=== PATIENT | male | born 1950 | race American Indian/Alaskan Native ===

== ENCOUNTER 2016-09-11 07:24 | Day surgery (SDC) | payer MEDICARE, OTHER ==
[~2016-09-11 07:24] MED LIST: Cefuroxime 10 MG/ML SYRINGE EYELF SCH; Lidocaine 1% PF 2 ML SDV INJECT SCH; Pilocarpine 4% Ophth Soln 15 ML Bot EYELF SCH; Proparacaine 0.5% Ophth Soln 15 ML Bottle EYEBOTH SCH; Tetracaine 0.5% 2 ML Bottle EYELF SCH
[2016-09-11] MEDS: Polymyxin B/Trimethoprim 10 ML Bottle EYELF SCH ×3 (07:32→09:08)
[2016-09-11] MEDS: Apraclonidine 0.5% Ophth Soln 5 ML Bot EYELF SCH ×3 (07:37→09:08)
[2016-09-11] MEDS: Phenylephrine 2.5% Ophth Soln 2 ML Bot EYELF SCH ×5 (07:41→08:49)
--- NOTE | 2016-09-11 07:46 | PCM.PREANE ---
Preanesthetic Assessment - Anesthesia/Transfusion/Family Hx Anesthesia History: Prior Anesthesia Without Reaction Family History of Anesthesia Reaction: No Transfusion History: Prior Transfusion Without Reaction Type of Transfusion Reactions: Reports: Unknown - Review of Systems General: Fatigue Pulmonary: Shortness of Breath, Wheezing (5 liters taken off with thoracentesis) Cardiovascular: No Symptoms, Other (HTN, EF 20-25%, severe pulmonary HTN, ) Gastrointestinal: No symptoms Neurological: No Symptoms, Other (hx of a stroke with no residuals) Other: Reports: Easy Bruising, Diabetes (on dialysis, last run 09/10/16) - Physical Assessment NPO Status Date: 09/10/16 NPO Status Time: 22:00 Pulse: 90 O2 Sat by Pulse Oximetry: 100 Respiratory Rate: 16 Blood Pressure: 99/72 Temperature: 36.2 C Height: 1.78 m Weight: 74.389 kg ASA Class: 3 Mental Status: Alert & Oriented x3 Airway Class: Mallampati = 2 Dentition: Reports: Edentulous (upper ) Thyro-Mental Finger Breadths: 3 Mouth Opening Finger Breadths: 3 ROM/Head Extension: Full Lungs: Clear to auscultation, Normal respiratory effort, Decreased breath sounds Cardiovascular: Regular Rate, Regular Rhythm - Allergies Allergies/Adverse Reactions: Allergies Allergy/AdvReac Type Severity Reaction Status Date / Time No Known Allergies Allergy Verified 09/10/16 14:27 - Blood Blood Available: No Product(s) Available: None - Anesthesia Plan Pre-Op Medication Ordered: None Beta Malik: Carvedilol Med Last Dose Date: 09/10/16 Med Last Dose Time: 17:00 - Acknowledgements Anesthesia Type Planned: MAC Pt an Appropriate Candidate for the Planned Anesthesia: Yes Alternatives and Risks of Anesthesia Discussed w Pt/Guardian: Yes PreAnesthesia Questionnaire HEENT History: Reports: Cataract, Impaired vision Cardiovascular History: Reports: Heart Failure, High cholesterol, Hypertension Gastrointestinal History: Reports: Colon polyp, GERD Genitourinary History: Reports: Dialysis, Renal disease Musculoskeletal History: Reports: Arthritis, SLE Neurological History: Reports: CVA, Headaches, chronic Endocrine/Metabolic History: Reports: Diabetes, type II Hematologic History: Reports: Blood transfusion(s) Oncologic (Cancer) History: Reports: Other (see below) Other Oncologic History: multiple myeloma - Infectious Disease History Infectious Disease History: Reports: Shingles Other Infectious Disease History: hx shingles - Past Surgical History Cardiovascular Surgical History: Reports: Vascular surgery GI Surgical History: Reports: Cholecystectomy, Colonoscopy - SUBSTANCE USE Smoking Status *Q: Unknown Ever Smoked Tobacco Use Within Last Twelve Months: No Recreational Drug Use History: No - HOME MEDS Home Medications: Home Meds Aspirin [Halfprin] 81 mg PO BEDTIME 03/24/15 [History] Cholecalciferol (Vitamin D3) [Vitamin D3] 1,000 units PO DAILY 03/24/15 [History ] Ferrous Sulfate 325 mg PO WITHBREAKFAST 03/24/15 [History] Insulin Aspart [Novolog Flexpen] 0 units SQ TID 03/24/15 [History] Isosorbide Mononitrate [Isosorbide Mononitrate ER] 60 mg PO DAILY 03/24/15 [ History] Sevelamer Carbonate [Renvela] 800 mg PO TID 03/24/15 [History] Sodium Bicarbonate 650 mg PO BID 03/24/15 [History] Zolpidem Tartrate [Ambien] 1 - 2 tab PO BEDTIME PRN 07/31/15 [History] Calcium Carbonate 1,000 mg PO QID 02/05/16 [History] Carvedilol 3.125 mg PO BID 02/05/16 [History] Lisinopril 5 mg PO DAILY 02/05/16 [History] Magnesium Oxide 400 mg PO DAILY 02/05/16 [History] Rosuvastatin Calcium [Crestor] 5 mg PO DAILY 02/05/16 [History] predniSONE [Prednisone] 7.5 mg PO DAILY 02/05/16 [History] Baclofen [Lioresal] 10 mg PO TID PRN #10 tablet 03/03/16 [Rx] Insulin Glargine,Hum.Rec.Anlog [Lantus Solostar] 10 unit SQ BEDTIME #100 ml 04/08 [Rx] Metronidazole [IJD: metroNIDAZOLE] 500 mg PO .EVERY 8 HOURS #39 tab 03/03/16 [Rx ] Saccharomyces Boulardii [Probiotic] 250 mg PO BID #28 capsule 03/03/16 [Rx] chlorproMAZINE [Thorazine] 25 mg PO Q4H PRN #10 tablet 03/03/16 [Rx] Levofloxacin [Levaquin] 500 mg PO ASDIRECTED #6 tablet 06/19/16 [Rx] - CURRENT (IN HOUSE) MEDS Current Meds: Current Medications Apraclonidine HCl (Iopidine 0.5% Ophth Soln) 0 ml EYELF ASDIRECTED AMANDA Stop: 09/11/16 18:00 Last Admin: 09/11/16 07:37 Dose: 1 drop Cefuroxime Sodium (Zinacef) 0 mg EYELF ASDIRECTED AMANDA Stop: 09/11/16 18:00 Lidocaine HCl (Xylocaine-Mpf 1%) 10 ml INJECT ASDIRECTED AMANDA Stop: 09/11/16 18:00 Phenylephrine HCl (Sher-Synephrine 2.5% Ophth Soln) 0 ml EYELF ASDIRECTED AMANDA Stop: 09/11/16 18:00 Pilocarpine HCl (Pilocar 4% Ophth Soln) 0 ml EYELF ASDIRECTED AMANDA Stop: 09/11/16 18:00 Polymyxin/Trimethoprim Sulfate (Polytrim Ophth Soln) 0 ml EYELF ASDIRECTED AMANDA Stop: 09/11/16 18:00 Last Admin: 09/11/16 07:32 Dose: 1 drop Proparacaine HCl (Proparacaine 0.5% Ophth Soln) 0 ml EYEBOTH ASDIRECTED AMANDA Stop: 09/11/16 18:00 Tetracaine (Pontocaine 0.5% Ophth Drops) 0 ml EYELF ASDIRECTED AMANDA Stop: 09/11/16 18:00 Tropicamide (Mydriacyl 1% Ophth Soln) 0 ml EYELF ASDIRECTED AMANDA Stop: 09/11/16 18:00 Preanesthetic Assessment - ANESTHESIA/TRANSFUSION/FAMILY HX Anesthesia/Transfusion History: Prior Anesthesia Family History of Anesthesia Reaction: No Type of Transfusion Reactions: Reports: Unknown - PHYSICAL ASSESSMENT Height: 1.78 m Weight: 74.389 kg - ALLERGIES Allergies/Adverse Reactions: Allergies Allergy/AdvReac Type Severity Reaction Status Date / Time No Known Allergies Allergy Verified 09/10/16 14:27
--- NOTE | 2016-09-11 09:04 | PCM48HPAN ---
Post Anesthesia Note - EVALUATION WITHIN 48HRS OF ANESTHETIC Vital Signs in Normal Range: Yes Patient Participated in Evaluation: Yes Respiratory Function Stable: Yes Airway Patent: Yes Cardiovascular Function Stable: Yes Hydration Status Stable: Yes Pain Control Satisfactory: Yes Nausea and Vomiting Control Satisfactory: Yes Mental Status Recovered: Yes
[2016-09-11 09:29] VITALS: BP 101/69
== END 2016-09-11 09:20 | disposition home or self-care (01) ==
LOC: JD.SDS 07:24
PROVIDERS: ATTEND Ophthalmology
DX: H26.9 Unspecified cataract (principal); I10 Essential (primary) hypertension; E11.9 Type 2 diabetes mellitus without complications; Z79.4 Long term (current) use of insulin; Z98.890 Other specified postprocedural states; Z87.891 Personal history of nicotine dependence; Z79.899 Other long term (current) drug therapy
CPT/HCPCS: 66984; 82962; A9270; J0697; V2632

== ENCOUNTER 2017-05-14 15:12 | Emergency (ER) | payer MEDICARE, OTHER ==
[2017-05-14 15:22] VITALS: BP 136/79
--- NOTE | 2017-05-14 18:43 | EDM.PDOC ---
ED HPI GENERAL MEDICAL PROBLEM - General Chief Complaint: Flank Pain Stated Complaint: R SIDE PAIN Time Seen by Provider: 05/14/17 15:39 Source of Information: Reports: Patient History Limitations: Reports: No Limitations - History of Present Illness INITIAL COMMENTS - FREE TEXT/NARRATIVE: Patient is a 66 year old male who presents to the E.D. complaining of pain to the upper quadrant with radiation to the back. States it has been present for quite some time. States earlier this month he was admitted to the E.D. due to sepsis 2nd to C-diff. Patient spent a few days in the hospital discharged home on vancomycin. States prior to the infection the pain was intermittent with no clear precipitating factors. During his hospitalization CT was obtained of the abdomen and pelvis revealing no kidney stones present. States pain persisted after discharge with really no change with symptamology up until recent. States the pain has become more constant. Continues to take vancomycin as prescribed. Diarrhea has subsided but stool remains soft and formed. NO blood present. Patient is a dialysis and continues with 3 treatments a week with no concerns. In addition has history of shingles to the left side that has since resolved. Denies: CP, SoB, Fever, acid reflux, dysuria, increased flatulence, or any additional complaints. Generally produces a cup of urine twice a day. Right Flank Pain Score (Numeric/FACES): 7 - Related Data Allergies Allergy/AdvReac Type Severity Reaction Status Date / Time No Known Allergies Allergy Verified 09/10/16 14:27 Home Meds: Home Meds Aspirin [Halfprin] 81 mg PO BEDTIME 03/24/15 [History] Cholecalciferol (Vitamin D3) [Vitamin D3] 1,000 units PO DAILY 03/24/15 [History ] Ferrous Sulfate 325 mg PO WITHBREAKFAST 03/24/15 [History] Insulin Aspart [Novolog Flexpen] 0 units SQ TID 03/24/15 [History] Isosorbide Mononitrate [Isosorbide Mononitrate ER] 60 mg PO DAILY 03/24/15 [ History] Sevelamer Carbonate [Renvela] 800 mg PO TID 03/24/15 [History] Sodium Bicarbonate 650 mg PO BID 03/24/15 [History] Zolpidem Tartrate [Ambien] 1 - 2 tab PO BEDTIME PRN 07/31/15 [History] Carvedilol 3.125 mg PO BID 02/05/16 [History] Lisinopril 5 mg PO DAILY 02/05/16 [History] Magnesium Oxide 400 mg PO DAILY 02/05/16 [History] Rosuvastatin Calcium [Crestor] 5 mg PO DAILY 02/05/16 [History] predniSONE [Prednisone] 7.5 mg PO DAILY 02/05/16 [History] Baclofen [Lioresal] 10 mg PO TID PRN #10 tablet 03/03/16 [Rx] Saccharomyces Boulardii [Probiotic] 250 mg PO BID #28 capsule 03/03/16 [Rx] chlorproMAZINE [Thorazine] 25 mg PO Q4H PRN #10 tablet 03/03/16 [Rx] Insulin Glargine,Hum.Rec.Anlog [Lantus Solostar] 10 unit SQ BEDTIME PRN [History] Vancomycin HCl 5 ml PO QID 05/14/17 [History] Past Medical History HEENT History: Reports: Cataract, Impaired Vision Cardiovascular History: Reports: Heart Failure, High Cholesterol, Hypertension Gastrointestinal History: Reports: Colon Polyp, GERD Genitourinary History: Reports: Dialysis, Renal Disease Musculoskeletal History: Reports: Arthritis, SLE Neurological History: Reports: CVA, Headaches, Chronic Endocrine/Metabolic History: Reports: Diabetes, Type II Hematologic History: Reports: Blood Transfusion(s) Oncologic (Cancer) History: Reports: Other (See Below) Other Oncologic History: multiple myloma - Infectious Disease History Infectious Disease History: Reports: C-Difficile, Shingles Other Infectious Disease History: hx shingles ; in hospital in beginning of Apr and was told he has c-diff and is on vanco at this time - Past Surgical History HEENT Surgical History: Reports: Oral Surgery Cardiovascular Surgical History: Reports: Vascular Surgery Social & Family History - Family History Family Medical History: Noncontributory Psychiatric: Reports: None Hematologic: Reports: None Immunologic: Reports: None Dermatologic: Reports: None Oncologic: Reports: None - Tobacco Use Smoking Status *Q: Former Smoker Used Tobacco, but Quit: Yes Month Tobacco Last Used: 2011 - Caffeine Use Caffeine Use: Reports: None - Recreational Drug Use Recreational Drug Use: No - Living Situation & Occupation Living situation: Reports: , with Spouse, with Family Occupation: Retired ED ROS GENERAL - Review of Systems Review Of Systems: See Below Constitutional: Denies: Fever, Chills, Malaise, Weakness, Decreased Appetite HEENT: Reports: No Symptoms Respiratory: Denies: Shortness of Breath, Wheezing, Pleuritic Chest Pain, Cough , Sputum Cardiovascular: Denies: Chest Pain, Dyspnea on Exertion, Palpitations, PND, Syncope GI/Abdominal: Reports: Abdominal Pain (Right upper quadrant.). Denies: Anorexia , Black Stool, Bloody Stool, Constipation, Diarrhea (Loose stools.), Decreased Appetite, Distension, Flatus, Hematemesis, Hematochezia, Melena, Nausea, Vomiting : Reports: Flank Pain (Right upper quadrant radiating to his back.). Denies: Dysuria Musculoskeletal: Denies: Shoulder Pain, Back Pain (Right CVA) Neurological: Denies: Dizziness, Headache, Numbness, Tingling ED EXAM, GI/ABD - Physical Exam Exam: See Below Exam Limited By: No Limitations General Appearance: Alert, WD/WN, No Apparent Distress Ears: Hearing Grossly Normal Nose: Normal Inspection Throat/Mouth: Normal Inspection, Normal Oropharynx, Normal Voice, No Airway Compromise Head: Atraumatic, Normocephalic Neck: Normal Inspection, Supple, Non-Tender, Full Range of Motion Respiratory/Chest: No Respiratory Distress, Lungs Clear, Normal Breath Sounds, No Accessory Muscle Use, Chest Non-Tender Cardiovascular: Normal Peripheral Pulses, Regular Rate, Rhythm, Systolic Murmur GI/Abdominal Exam: Normal Bowel Sounds, Soft, No Organomegaly, No Distention, Tender (Mild tenderness to the right upper quadrant. Otherwise exam is benign. Patient has no gallbladder or appendix.) Back Exam: Normal Inspection. No: CVA Tenderness (L), CVA Tenderness (R) Extremities: Normal Inspection, Non-Tender, No Pedal Edema, Normal Capillary Refill Neurological: Alert, Oriented, CN II-XII Intact, Normal Cognition, No Motor/ Sensory Deficits Psychiatric: Normal Affect, Normal Mood Skin Exam: Warm, Dry, Intact, Normal Color, No Rash (Patient does have a history of shingles to the left leg. No rash present to the area of complaint.) Course - Vital Signs Last Recorded V/S: Last Vital Signs Temp 98.2 F 05/14/17 15:20 Pulse 70 05/14/17 15:20 Resp 20 11/21/17 15:20 BP 136/79 05/14/17 15:20 Pulse Ox 100 05/14/17 15:20 - Orders/Labs/Meds Labs: Laboratory Tests 05/14/17 05/14/17 Range/Units 16:50 16:50 WBC 8.48 (4.23-9.07) K/mm3 RBC 3.18 L (4.63-6.08) M/mm3 Hgb 11.0 L (13.7-17.5) gm/L Hct 32.2 L (40.1-51.0) % MCV 101.3 H (79.0-92.2) fl MCH 34.6 H (25.7-32.2) pg MCHC 34.2 (32.2-35.5) g/dl RDW Std Deviation 52.4 H (35.1-43.9) fL Plt Count 153 L (163-337) K/mm3 MPV 9.7 (9.4-12.3) fl Neut % (Auto) 84.9 H (34.0-67.9) % Lymph % (Auto) 7.4 L (21.8-53.1) % [place] % (Auto) 6.7 (5.3-12.2) % Eos % (Auto) 0.4 L (0.8-7.0) Baso % (Auto) 0.2 (0.1-1.2) % Neut # (Auto) 7.20 H (1.78-5.38) K/mm3 Lymph # (Auto) 0.63 L (1.32-3.57) K/mm3 [place] # (Auto) 0.57 (0.30-0.82) K/mm3 Eos # (Auto) 0.03 L (0.04-0.54) K/mm3 Baso # (Auto) 0.02 (0.01-0.08) K/mm3 Manual Slide Review Abnormal smear Sodium 139 (136-145) mEq/L Potassium 4.1 (3.5-5.1) mEq/L Chloride 98 (98-107) mEq/L Carbon Dioxide 31 (21-32) mEq/L Anion Gap 14.1 (5-15) BUN 18 (7-18) mg/dL Creatinine 4.9 H (0.7-1.3) mg/dL Est Cr Clr Drug Dosing 15.31 mL/min Estimated GFR (MDRD) 12 (>60) mL/min BUN/Creatinine Ratio 3.7 L (14-18) Glucose 129 H (80-115) mg/dL Calcium 8.3 L (8.5-10.1) mg/dL Total Bilirubin 0.9 (0.2-1.0) mg/dL AST 37 (15-37) U/L ALT 48 (16-63) U/L Alkaline Phosphatase 129 H (46-116) U/L C-Reactive Protein < 0.2 (<1.0) mg/dL Total Protein 7.6 (6.4-8.2) g/dl Albumin 3.8 (3.4-5.0) g/dl Globulin 3.8 gm/dL Albumin/Globulin Ratio 1.0 (1-2) - Re-Assessments/Exams Free Text/Narrative Re-Assessment/Exam: Ordered basic labs including CBC, chem 14, and CRP. Will obtain a two-view x- ray of the abdomen. Two-view flat and upright impression: Stable findings from previous abdominal x- ray. CBC and chem 14 and I reveal any concerning findings. CRP within the normal limits. Review previous discharge summary from [facility] dated 05/08/2017. Patient was diagnosed with C. difficile with severe septicemia. He was started on Flagyl IV and also vancomycin. THey had resolution of septic shock with improvement to bowel movements. He was also discharged on stress dose steroids. Patient continues taking vancomycin as prescribed. Stools have remained soft and formed. States the pain to his right upper quadrant was present prior to admission to [facility] and is unchanged. He has no history of kidney stones. CT of the abdomen and pelvis dated 05/04/2017 did not reveal any kidney stones present. At this point unclear etiology of current complaint. Patient will follow up with PCP. Will discharge home with instructions as documented. Departure - Departure Time of Disposition: 18:45 Disposition: Home, Self-Care 01 Condition: Good Clinical Impression: Abdominal pain Qualifiers: Abdominal location: right upper quadrant Qualified Code(s): R10.11 - Right upper quadrant pain - Discharge Information Instructions: Abdominal Pain, Adult Referrals: Jojo Bazan ADMINISTRATIVE SERVICES COORDINATOR [Primary Care Provider] - Forms: ED Department Discharge Additional Instructions: Unclear etiology current complaint. X-ray of the abdomen did show copious amounts of air within the colon which is stable from previous examinations. No stones present on prior CT of the abdomen and pelvis. Labs did not reveal any concerning findings. Please follow up with your primary care provider in the next week for reevaluation. Call and make an appointment tomorrow. Return to the E.D. as needed for any new or worsening symptoms.
--- NOTE | 2017-05-15 08:49 | CR ---
Abdomen: Supine and upright views of the abdomen were obtained. Scattered gas within small bowel and colon is seen. Small bowel gas is slightly prominent but still felt to be within normal limits. Surgical clips are seen within the upper abdomen on both sides. Scoliosis is noted within the spine with mild degenerative change. No free air is seen. Impression: 1. Incidental findings. Nothing acute is suspected. Diagnostic code #2
== END 2017-05-14 19:20 | disposition home or self-care (01) ==
LOC: JD.ED 15:12
DX: R10.11 Right upper quadrant pain (principal); I11.0 Hypertensive heart disease with heart failure; I50.9 Heart failure, unspecified; E11.9 Type 2 diabetes mellitus without complications; Z87.891 Personal history of nicotine dependence; Z99.2 Dependence on renal dialysis; Z79.82 Long term (current) use of aspirin; Z79.4 Long term (current) use of insulin; Z79.899 Other long term (current) drug therapy
CPT/HCPCS: 36415; 74020; 74020-26; 80053; 85025; 86140; 99282; 99284

== ENCOUNTER 2017-07-22 11:09 | Emergency (ER) | payer MEDICARE, OTHER ==
[2017-07-22 11:20] VITALS: BP 132/97
[2017-07-22] MEDS ORDERED: Ondansetron 4 MG Tab.DIS PO ONE (11:54)
--- NOTE | 2017-07-22 11:55 | EDM.PDOC ---
ED HPI GENERAL MEDICAL PROBLEM - General Chief Complaint: Gastrointestinal Problem Stated Complaint: DIARRHEA,WEAK,NAUSEA Time Seen by Provider: 07/22/17 11:35 Source of Information: Reports: Patient, RN Notes Reviewed - History of Present Illness INITIAL COMMENTS - FREE TEXT/NARRATIVE: 67-year-old male comes in with upper abdominal pain, nausea, decreased appetite and difficulty and to be more specific inability to have a normal BM. This started about 2 days ago. The pain is worsening. He had a small amount of liquid stool this past morning. He feels like he needs to have a BM, has been trying to do that this afternoon without any success. He feels sick. He was unable to go to his normal scheduled dialysis this past morning. His last run was Saturday 3 days ago. Fever or chills. He has not been vomiting. He has not had anything to eat today and also not drinking fluids. No chest pain or difficulty breathing. He does have history of renal failure on dialysis. He is insulin-dependent diabetic. Bilateral Lower Abdomen Pain Score (Numeric/FACES): 5 - Related Data Allergies Allergy/AdvReac Type Severity Reaction Status Date / Time No Known Allergies Allergy Verified 07/22/17 11:20 Home Meds: Home Meds Aspirin [Halfprin] 81 mg PO BEDTIME 03/24/15 [History] Cholecalciferol (Vitamin D3) [Vitamin D3] 1,000 units PO DAILY 03/24/15 [History ] Ferrous Sulfate 325 mg PO WITHBREAKFAST 03/24/15 [History] Insulin Aspart [Novolog Flexpen] 0 units SQ TID 03/24/15 [History] Isosorbide Mononitrate [Isosorbide Mononitrate ER] 60 mg PO DAILY 03/24/15 [ History] Sevelamer Carbonate [Renvela] 800 mg PO TID 03/24/15 [History] Sodium Bicarbonate 650 mg PO BID 03/24/15 [History] Zolpidem Tartrate [Ambien] 1 - 2 tab PO BEDTIME PRN 07/31/15 [History] Carvedilol 3.125 mg PO BID 02/05/16 [History] Lisinopril 5 mg PO DAILY 02/05/16 [History] Magnesium Oxide 400 mg PO DAILY 02/05/16 [History] Rosuvastatin Calcium [Crestor] 5 mg PO DAILY 02/05/16 [History] predniSONE [Prednisone] 7.5 mg PO DAILY 02/05/16 [History] Baclofen [Lioresal] 10 mg PO TID PRN #10 tablet 03/03/16 [Rx] Saccharomyces Boulardii [Probiotic] 250 mg PO BID #28 capsule 03/03/16 [Rx] chlorproMAZINE [Thorazine] 25 mg PO Q4H PRN #10 tablet 03/03/16 [Rx] Insulin Glargine,Hum.Rec.Anlog [Lantus Solostar] 10 unit SQ BEDTIME PRN [History] Vancomycin HCl 5 ml PO QID 05/14/17 [History] Past Medical History HEENT History: Reports: Cataract, Impaired Vision Cardiovascular History: Reports: Heart Failure, High Cholesterol, Hypertension Gastrointestinal History: Reports: Colon Polyp, GERD Genitourinary History: Reports: Dialysis, Renal Disease Musculoskeletal History: Reports: Arthritis, SLE Neurological History: Reports: CVA, Headaches, Chronic Endocrine/Metabolic History: Reports: Diabetes, Type II Hematologic History: Reports: Blood Transfusion(s) Oncologic (Cancer) History: Reports: Other (See Below) Other Oncologic History: multiple myloma - Infectious Disease History Infectious Disease History: Reports: C-Difficile, Shingles Other Infectious Disease History: hx shingles ; in hospital in beginning of Apr and was told he has c-diff and is on vanco at this time - Past Surgical History HEENT Surgical History: Reports: Oral Surgery Cardiovascular Surgical History: Reports: Vascular Surgery Social & Family History - Family History Family Medical History: Noncontributory Psychiatric: Reports: None Hematologic: Reports: None Immunologic: Reports: None Dermatologic: Reports: None Oncologic: Reports: None - Tobacco Use Smoking Status *Q: Former Smoker Used Tobacco, but Quit: Yes Month Tobacco Last Used: 2011 Second Hand Smoke Exposure: No - Caffeine Use Caffeine Use: Reports: None - Recreational Drug Use Recreational Drug Use: No - Living Situation & Occupation Living situation: Reports: , with Spouse, with Family Occupation: Retired ED ROS GENERAL - Review of Systems Review Of Systems: See Below Constitutional: Denies: Fever, Chills HEENT: Reports: Other (Mouth feels dry). Denies: Throat Pain Respiratory: Denies: Shortness of Breath, Pleuritic Chest Pain Cardiovascular: Denies: Chest Pain GI/Abdominal: Reports: Abdominal Pain (Generalized), Diarrhea, Decreased Appetite (Has not been eating today), Nausea (Small amount of diarrhea this past morning). Denies: Vomiting Musculoskeletal: Denies: Leg Pain Skin: Reports: No Symptoms Neurological: Reports: Dizziness (Mild) ED EXAM, GI/ABD - Physical Exam Exam: See Below General Appearance: Alert, Mild Distress Throat/Mouth: Normal Inspection, Other (Oral mucosa is somewhat dry) Head: Atraumatic. No: Facial Swelling Neck: Supple, Full Range of Motion Respiratory/Chest: No Respiratory Distress, Lungs Clear, Normal Breath Sounds Cardiovascular: Tachycardia GI/Abdominal Exam: Distended, Other (Moderate diffuse tenderness, bowel sounds are somewhat increased) Extremities: Normal Inspection, Normal Range of Motion. No: Pedal Edema, Leg Pain Neurological: Alert, Oriented, No Motor/Sensory Deficits Skin Exam: Warm, Dry, Normal Color Course - Vital Signs Last Recorded V/S: Last Vital Signs Temp 98 F 07/22/17 11:17 Pulse 111 H 07/22/17 11:17 Resp 18 07/22/17 11:17 BP 132/97 H 07/22/17 11:17 Pulse Ox 100 07/22/17 11:17 - Orders/Labs/Meds Labs: Laboratory Tests 07/22/17 07/22/17 Range/Units 12:24 12:24 WBC 7.59 (4.23-9.07) K/mm3 RBC 2.80 L (4.63-6.08) M/mm3 Hgb 9.7 L (13.7-17.5) gm/L Hct 31.3 L (40.1-51.0) % MCV 111.8 H (79.0-92.2) fl MCH 34.6 H (25.7-32.2) pg MCHC 31.0 L (32.2-35.5) g/dl RDW Std Deviation 64.6 H (35.1-43.9) fL Plt Count 152 L (163-337) K/mm3 MPV 10.2 (9.4-12.3) fl Neut % (Auto) 70.4 H (34.0-67.9) % Lymph % (Auto) 15.8 L (21.8-53.1) % [place] % (Auto) 11.6 (5.3-12.2) % Eos % (Auto) 1.4 (0.8-7.0) Baso % (Auto) 0.7 (0.1-1.2) % Neut # (Auto) 5.34 (1.78-5.38) K/mm3 Lymph # (Auto) 1.20 L (1.32-3.57) K/mm3 [place] # (Auto) 0.88 H (0.30-0.82) K/mm3 Eos # (Auto) 0.11 (0.04-0.54) K/mm3 Baso # (Auto) 0.05 (0.01-0.08) K/mm3 Manual Slide Review Abnormal smear Sodium 142 (136-145) mEq/L Potassium 5.1 (3.5-5.1) mEq/L Chloride 100 (98-107) mEq/L Carbon Dioxide 20 L (21-32) mEq/L Anion Gap 27.1 H (5-15) BUN 72 H (7-18) mg/dL Creatinine 9.7 H (0.7-1.3) mg/dL Est Cr Clr Drug Dosing 7.63 mL/min Estimated GFR (MDRD) 5 (>60) mL/min BUN/Creatinine Ratio 7.4 L (14-18) Glucose 88 (80-115) mg/dL Calcium 6.7 L (8.5-10.1) mg/dL Total Bilirubin 1.1 H (0.2-1.0) mg/dL AST 30 (15-37) U/L ALT 42 (16-63) U/L Alkaline Phosphatase 76 (46-116) U/L Total Protein 7.3 (6.4-8.2) g/dl Albumin 3.5 (3.4-5.0) g/dl Globulin 3.8 gm/dL Albumin/Globulin Ratio 0.9 L (1-2) Meds: Medications Discontinued Medications Generic Name Dose Route Start Last Admin Trade Name Freq PRN Reason Stop Dose Admin Ondansetron HCl 4 mg 07/22/17 11:54 07/22/17 12:05 Zofran Odt PO 07/22/17 11:55 4 mg ONETIME ONE Administration - Re-Assessments/Exams Free Text/Narrative Re-Assessment/Exam: 07/22/17 15:03 White blood count is normal, chemistries are as documented, we did do a flat and upright of the abdomen that does show dilated air-filled small bowel loops strongly suspicious for developing small bowel obstruction, see radiology report for details. I have discussed this with patient, his and admission coordinator at [facility]. He is going to need dialysis and needs to be admitted to be treated in patient. Our renal dialysis unit is only able to do dialysis for outpatients, not allowed or able to do dialysis for hospital inpatients per policy. Therefore he does need to be transferred and admitted to a [facility]. He has been at [facility] before. Dr Hammond, Hospitalist does accept patient in transfer. His will be driving him private vehicle. Departure - Departure Time of Disposition: 14:12 Disposition: Home, Self-Care 01 Clinical Impression: Abdominal pain, Small bowel obstruction - Discharge Information Referrals: Jojo Bazan, FORMER HAND [Primary Care Provider] - Forms: ED Department Discharge Additional Instructions: transfer to [facility] now for direct admit to Medicine, Dr Neely, Hospitalist accepting Physcian
--- NOTE | 2017-07-22 13:04 | CR ---
Abdomen: Supine and upright views of the abdomen were obtained. Comparison: Previous abdomen x-ray of 05/14/17. Dilated air-filled small bowel loops seen within the abdomen. Surgical clips are seen within the abdomen. Scoliosis and degenerative change is noted within the spine. No free air is appreciated. Impression: 1. Dilated loops of small bowel suspicious for developing small bowel obstruction. Diagnostic code #3
== END 2017-07-22 14:45 | disposition home or self-care (01) ==
LOC: JD.ED 11:09
DX: K56.609 Unspecified intestinal obstruction, unspecified as to partial versus complete obstruction (principal); I11.0 Hypertensive heart disease with heart failure; I50.9 Heart failure, unspecified; E11.9 Type 2 diabetes mellitus without complications; Z79.82 Long term (current) use of aspirin; Z79.4 Long term (current) use of insulin; Z79.899 Other long term (current) drug therapy; Z87.891 Personal history of nicotine dependence
CPT/HCPCS: 36415; 74019; 80053; 85025; 99285; A9270

== ENCOUNTER 2017-09-30 09:17 | Emergency (ER) | payer MEDICARE, OTHER ==
[2017-09-30 09:27] VITALS: BP 122/92
[2017-09-30] MEDS ORDERED: Sodium Chloride 0.9% 10 ML Syringe FLUSH PRN (10:03)
[2017-09-30] MEDS ORDERED: Ondansetron 4 MG/2 ML SDV IVPUSH ONE (10:03)
--- NOTE | 2017-09-30 10:21 | EDM.PDOC ---
<Virginia Monterosea - Last Filed: 09/30/17 10:45> ED HPI GENERAL MEDICAL PROBLEM - General Chief Complaint: Gastrointestinal Problem Stated Complaint: BLOATED AND RUSSELLRIAHA Time Seen by Provider: 09/30/17 09:41 Source of Information: Reports: Patient, Family History Limitations: Reports: No Limitations - History of Present Illness INITIAL COMMENTS - FREE TEXT/NARRATIVE: Patient is a 67 YO male who presents for constipation and bloating. He states this started 1 month ago. He reports some diarrhea but mostly gas and feeling constipated. He reports loss of appetite due to bloating, some nausea but no vomiting. He denies blood in the stool. He states he feels short of breath just because his abdomen is so full that he can't take a deep breath. 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 He has been diagnosed with multiple myeloma in 2011. He states about 1 year ago he was undergoing paracentesis almost monthly due to ascites. He is on dialysis and was supposed to go this morning but did not think he could sit there for 4 hours with his current diarrhea. He has rescheduled his appointment for tomorrow. - Related Data Allergies Allergy/AdvReac Type Severity Reaction Status Date / Time No Known Allergies Allergy Verified 09/30/17 09:27 Home Meds: Home Meds Aspirin [Halfprin] 81 mg PO BEDTIME 03/24/15 [History] Ferrous Sulfate 325 mg PO WITHBREAKFAST 03/24/15 [History] Isosorbide Mononitrate [Isosorbide Mononitrate ER] 60 mg PO DAILY 03/24/15 [ History] Sevelamer Carbonate [Renvela] 800 mg PO TID 03/24/15 [History] Sodium Bicarbonate 650 mg PO BID 03/24/15 [History] Zolpidem Tartrate [Ambien] 1 - 2 tab PO BEDTIME PRN 07/31/15 [History] Carvedilol 3.125 mg PO BID 02/05/16 [History] Rosuvastatin Calcium [Crestor] 5 mg PO DAILY 02/05/16 [History] predniSONE [Prednisone] 7.5 mg PO DAILY 02/05/16 [History] Baclofen [Lioresal] 10 mg PO TID PRN #10 tablet 03/03/16 [Rx] chlorproMAZINE [Thorazine] 25 mg PO Q4H PRN #10 tablet 03/03/16 [Rx] Insulin Glargine,Hum.Rec.Anlog [Lantus Solostar] 10 unit SQ BEDTIME PRN [History] Benzonatate 100 mg PO Q8H 09/30/17 [History] Calcium Acetate 667 mg PO TID 09/30/17 [History] Dronabinol 2.5 mg PO BID 09/30/17 [History] Lactulose 5 ml PO BEDTIME PRN 09/30/17 [History] Metoprolol Succinate 25 mg PO DAILY 09/30/17 [History] Ondansetron [Zofran ODT] 4 mg PO Q6H PRN 09/30/17 [History] Promethazine [Phenergan] 25 mg PO Q6H PRN 09/30/17 [History] Past Medical History HEENT History: Reports: Cataract, Impaired Vision Cardiovascular History: Reports: Heart Failure, High Cholesterol, Hypertension Gastrointestinal History: Reports: Chronic Constipation, Colon Polyp, GERD, GI Bleed, Other (See Below) Other Gastrointestinal History: hx c.diff Genitourinary History: Reports: Dialysis, Renal Disease Musculoskeletal History: Reports: Arthritis, SLE Neurological History: Reports: CVA, Headaches, Chronic Endocrine/Metabolic History: Reports: Diabetes, Type II Hematologic History: Reports: Blood Transfusion(s) Oncologic (Cancer) History: Reports: Other (See Below) Other Oncologic History: multiple myloma - Infectious Disease History Infectious Disease History: Reports: C-Difficile, Shingles Other Infectious Disease History: hx c. diff and shingles - Past Surgical History HEENT Surgical History: Reports: Oral Surgery Cardiovascular Surgical History: Reports: Vascular Surgery Social & Family History - Family History Family Medical History: Noncontributory Psychiatric: Reports: None Hematologic: Reports: None Immunologic: Reports: None Dermatologic: Reports: None Oncologic: Reports: None - Tobacco Use Smoking Status *Q: Former Smoker Used Tobacco, but Quit: No Month/Year Tobacco Last Used: 2011 Second Hand Smoke Exposure: No - Caffeine Use Caffeine Use: Reports: Coffee - Recreational Drug Use Recreational Drug Use: No - Living Situation & Occupation Living situation: Reports: , with Spouse, with Family Occupation: Retired ED ROS GENERAL - Review of Systems Review Of Systems: See Below Constitutional: Reports: No Symptoms Respiratory: Reports: No Symptoms Cardiovascular: Reports: No Symptoms GI/Abdominal: Reports: Constipation, Diarrhea, Decreased Appetite, Distension, Flatus, Nausea. Denies: Abdominal Pain, Bloody Stool, Difficulty Swallowing, Vomiting : Reports: Other (produces very minimal urine ) Musculoskeletal: Reports: No Symptoms Skin: Reports: No Symptoms Neurological: Reports: No Symptoms Psychiatric: Reports: No Symptoms ED EXAM, GI/ABD - Physical Exam Exam: See Below Exam Limited By: No Limitations General Appearance: Alert, WD/WN, No Apparent Distress Eyes: Bilateral: Normal Appearance (mild icterus), EOMI Throat/Mouth: Normal Inspection, Normal Lips, Normal Gums, Normal Oropharynx Head: Atraumatic, Normocephalic Respiratory/Chest: No Respiratory Distress, Lungs Clear, Normal Breath Sounds Cardiovascular: Normal Peripheral Pulses, Regular Rate, Rhythm GI/Abdominal Exam: Soft, Distended, Abnormal Bowel Sounds (decreased bowel sounds). No: Tender Neurological: Alert, Oriented, CN II-XII Intact, Normal Cognition Psychiatric: Normal Affect, Normal Mood Course - Vital Signs Last Recorded V/S: Last Vital Signs Temp 98.3 F 09/30/17 09:20 Pulse 100 09/30/17 09:20 Resp 18 09/30/17 09:20 BP 122/92 H 09/30/17 09:20 Pulse Ox 100 09/30/17 09:20 - Orders/Labs/Meds Orders: Active Orders 24 hr Category Date Time Status Communication Order [RC] STAT Care 09/30/17 10:34 Active Peripheral IV Care [RC] . DIRECTED Care 09/30/17 10:04 Active CULTURE STOOL + SHIGATOX [RM] Stat Lab 09/30/17 10:27 Ordered OCCULT BLOOD SCREEN [OP] Stat Lab 09/30/17 11:14 Ordered Sodium Chloride 0.9% [Saline Flush] Med 09/30/17 10:03 Active 10 ml FLUSH ASDIRECTED PRN ED Antiemetic Medication Reflex [OM.PC] Stat Oth 09/30/17 10:03 Ordered Peripheral IV Insertion Adult [OM.PC] Stat Oth 09/30/17 10:03 Ordered Medication Orders Sodium Chloride (Saline Flush) 10 ml FLUSH ASDIRECTED PRN PRN Reason: Keep Vein Open Last Admin: 04/09/18 10:16 Dose: 10 ml Labs: Laboratory Tests 09/30/17 09/30/17 09/30/17 Range/Units 10:12 10:12 10:12 WBC 6.98 (4.23-9.07) K/mm3 RBC 2.61 L (4.63-6.08) M/mm3 Hgb 8.7 L (13.7-17.5) gm/L Hct 27.9 L (40.1-51.0) % MCV 106.9 H (79.0-92.2) fl MCH 33.3 H (25.7-32.2) pg MCHC 31.2 L (32.2-35.5) g/dl RDW Std Deviation 64.7 H (35.1-43.9) fL Plt Count 158 L (163-337) K/mm3 MPV 10.6 (9.4-12.3) fl Neut % (Auto) 75.5 H (34.0-67.9) % Lymph % (Auto) 12.0 L (21.8-53.1) % [place] % (Auto) 10.9 (5.3-12.2) % Eos % (Auto) 0.9 (0.8-7.0) Baso % (Auto) 0.6 (0.1-1.2) % Neut # (Auto) 5.27 (1.78-5.38) K/mm3 Lymph # (Auto) 0.84 L (1.32-3.57) K/mm3 [place] # (Auto) 0.76 (0.30-0.82) K/mm3 Eos # (Auto) 0.06 (0.04-0.54) K/mm3 Baso # (Auto) 0.04 (0.01-0.08) K/mm3 Manual Slide Review Abnormal smear Sodium 138 (136-145) mEq/L Potassium 5.5 H (3.5-5.1) mEq/L Chloride 97 L (98-107) mEq/L Carbon Dioxide 25 (21-32) mEq/L Anion Gap 21.5 H (5-15) BUN 62 H (7-18) mg/dL Creatinine 8.7 H (0.7-1.3) mg/dL Est Cr Clr Drug Dosing 8.51 mL/min Estimated GFR (MDRD) 6 (>60) mL/min BUN/Creatinine Ratio 7.1 L (14-18) Glucose 87 (80-115) mg/dL Calcium 8.5 (8.5-10.1) mg/dL Total Bilirubin 1.1 H (0.2-1.0) mg/dL AST 31 (15-37) U/L ALT 22 (16-63) U/L Alkaline Phosphatase 75 (46-116) U/L Ammonia 25 (11-32) umol/L Total Protein 7.0 (6.4-8.2) g/dl Albumin 3.5 (3.4-5.0) g/dl Globulin 3.5 gm/dL Albumin/Globulin Ratio 1.0 (1-2) Lipase 161 (73-393) U/L C.difficile [id number]-[id number] C. difficile Tox (PCR) 09/30/17 Range/Units 10:25 WBC (4.23-9.07) K/mm3 RBC (4.63-6.08) M/mm3 Hgb (13.7-17.5) gm/L Hct (40.1-51.0) % MCV (79.0-92.2) fl MCH (25.7-32.2) pg MCHC (32.2-35.5) g/dl RDW Std Deviation (35.1-43.9) fL Plt Count (163-337) K/mm3 MPV (9.4-12.3) fl Neut % (Auto) (34.0-67.9) % Lymph % (Auto) (21.8-53.1) % [place] % (Auto) (5.3-12.2) % Eos % (Auto) (0.8-7.0) Baso % (Auto) (0.1-1.2) % Neut # (Auto) (1.78-5.38) K/mm3 Lymph # (Auto) (1.32-3.57) K/mm3 [place] # (Auto) (0.30-0.82) K/mm3 Eos # (Auto) (0.04-0.54) K/mm3 Baso # (Auto) (0.01-0.08) K/mm3 Manual Slide Review Sodium (136-145) mEq/L Potassium (3.5-5.1) mEq/L Chloride (98-107) mEq/L Carbon Dioxide (21-32) mEq/L Anion Gap (5-15) BUN (7-18) mg/dL Creatinine (0.7-1.3) mg/dL Est Cr Clr Drug Dosing mL/min Estimated GFR (MDRD) (>60) mL/min BUN/Creatinine Ratio (14-18) Glucose (80-115) mg/dL Calcium (8.5-10.1) mg/dL Total Bilirubin (0.2-1.0) mg/dL AST (15-37) U/L ALT (16-63) U/L Alkaline Phosphatase (46-116) U/L Ammonia (11-32) umol/L Total Protein (6.4-8.2) g/dl Albumin (3.4-5.0) g/dl Globulin gm/dL Albumin/Globulin Ratio (1-2) Lipase (73-393) U/L C.difficile [id number]-[id number] Presumptive negative C. difficile Tox (PCR) Positive H Meds: Medications Generic Name Dose Route Start Last Admin Trade Name Freq PRN Reason Stop Dose Admin Sodium Chloride 10 ml 09/30/17 10:03 09/30/17 10:16 Saline Flush FLUSH 10 ml ASDIRECTED PRN Administration Keep Vein Open Discontinued Medications Generic Name Dose Route Start Last Admin Trade Name Freq PRN Reason Stop Dose Admin Ondansetron HCl 4 mg 09/30/17 10:03 09/30/17 10:16 Zofran IVPUSH 09/30/17 10:04 4 mg ONETIME ONE Administration Departure - Departure Disposition: Home, Self-Care 01 Clinical Impression: Anemia Qualifiers: Iron deficiency anemia type: chronic blood loss Qualified Code(s): D50.0 - Iron deficiency anemia secondary to blood loss (chronic) Renal failure Qualifiers: Renal failure chronicity: chronic Chronic kidney disease stage: on chronic dialysis Qualified Code(s): N18.6 - End stage renal disease; Z99.2 - Dependence on renal dialysis Ascites Qualifiers: Ascites type: other type Qualified Code(s): R18.8 - Other ascites - Discharge Information Referrals: Jojo Bazan NP [Primary Care Provider] - Gómez Silva MD [Physician] - 1 Week Forms: ED Department Discharge Additional Instructions: Take your medication as prescribed. Follow up with Dr Silva in 1 to 2 weeks. Please return if you are worse. Make sure you go to dialysis tomorrow. - My Orders Last 24 Hours: My Active Orders 09/30/17 10:03 Sodium Chloride 0.9% [Saline Flush] 10 ml FLUSH ASDIRECTED PRN ED Antiemetic Medication Reflex [OM.PC] Stat Peripheral IV Insertion Adult [OM.PC] Stat 09/30/17 10:04 Peripheral IV Care [RC] . DIRECTED 09/30/17 10:27 CULTURE STOOL + SHIGATOX [RM] Stat 09/30/17 10:34 Communication Order [RC] STAT 09/30/17 11:14 OCCULT BLOOD SCREEN [OP] Stat - Assessment/Plan Last 24 Hours: My Active Orders 09/30/17 10:03 Sodium Chloride 0.9% [Saline Flush] 10 ml FLUSH ASDIRECTED PRN ED Antiemetic Medication Reflex [OM.PC] Stat Peripheral IV Insertion Adult [OM.PC] Stat 09/30/17 10:04 Peripheral IV Care [RC] . DIRECTED 09/30/17 10:27 CULTURE STOOL + SHIGATOX [RM] Stat 09/30/17 10:34 Communication Order [RC] STAT 09/30/17 11:14 OCCULT BLOOD SCREEN [OP] Stat <Jus Kingston A - Last Filed: 09/30/17 12:36> ED HPI GENERAL MEDICAL PROBLEM - General Source of Information: Reports: Patient, Family History Limitations: Reports: No Limitations - History of Present Illness Onset: Gradual Duration: Week(s): (4) Location: Reports: Abdomen Quality: Reports: Other (Distension) Severity: Moderate Improves with: Reports: None Worsens with: Reports: None Associated Symptoms: Reports: Nausea/Vomiting. Denies: Cough, Fever/Chills, Headaches, Shortness of Breath ED ROS GENERAL - Review of Systems Review Of Systems: See Below Constitutional: Reports: No Symptoms, Weight Gain Respiratory: Reports: No Symptoms Cardiovascular: Reports: No Symptoms GI/Abdominal: Reports: Constipation, Diarrhea, Decreased Appetite, Distension, Flatus, Nausea. Denies: Abdominal Pain, Bloody Stool, Difficulty Swallowing, Vomiting : Reports: Other Musculoskeletal: Reports: No Symptoms Skin: Reports: No Symptoms Neurological: Reports: No Symptoms ED EXAM, GI/ABD - Physical Exam Exam: See Below Exam Limited By: No Limitations General Appearance: Alert, WD/WN, No Apparent Distress Eyes: Bilateral: Normal Appearance, EOMI Throat/Mouth: Normal Inspection, Normal Lips, Normal Gums, Normal Oropharynx Head: Atraumatic, Normocephalic Respiratory/Chest: No Respiratory Distress, Lungs Clear, Normal Breath Sounds Cardiovascular: Normal Peripheral Pulses, Regular Rate, Rhythm GI/Abdominal Exam: Soft, Distended, Abnormal Bowel Sounds. No: Tender Course - Re-Assessments/Exams Free Text/Narrative Re-Assessment/Exam: 09/30/17 12:30 I ordered an IV saline lock, labs and a CT of his abdomen and pelvis. His WBC was normal. His Hgb was low at 8.7. He is normally at around 9 to 10. He does have weakly positive stool guiac. His plts were low at 158. His K was elevated at 5.5. His BUN was 62 and his creatinine was elevated at 8.7. His ammonia was normal at 25. His C-dif was positive but he is a known carrier. His CT shows moderate amount of ascites which appears fairly stable in amount from previous CT exam. Minimal right sided pleural effusion with right basilar atelectasis. Cardiomegaly. Other incidental findings. I talked to Dr Oakley and he and I agreed he is a carrier and he does not need to be treated for the C -dif. He will need to follow up with Dr Silva for the ascites for possible paracentesis. Departure - Departure Time of Disposition: 12:35 Condition: Good
--- NOTE | 2017-09-30 11:49 | CT ---
CT abdomen and pelvis Technique: Multiple axial sections were obtained from above the dome of the diaphragm inferiorly through the pubic symphysis. Intravenous and oral contrast was not utilized. Comparison: Prior CT abdomen and pelvis exam of 06/19/16 is available. Findings: Moderate amount of ascites is seen within the abdomen and pelvis. The amount of ascites appears fairly stable from previous exam. Heart is enlarged. Very minimal right sided pleural effusion is seen. Minimal atelectasis is seen within the right lung base. Liver shows no focal parenchymal abnormality. Spleen appears within normal limits. Adrenal glands show no nodule. Several surgical clips are seen in the area of the left adrenal gland. Surgical clips are also noted from prior cholecystectomy. Pancreas shows no discrete abnormality. Aorta and iliac vessels shows atherosclerotic calcification without aneurysm. No retroperitoneal adenopathy is seen. No discrete pelvic mass or adenopathy is noted. Calcifications are seen within the prostate gland. Scattered degenerative change throughout the spine is noted. Incompletely healed right ninth rib fracture is noted. Impression: 1. Moderate amount of ascites which appears fairly stable in amount from previous CT exam. 2. Minimal right sided pleural effusion with right basilar atelectasis. 3. Cardiomegaly. 4. Other incidental findings. Diagnostic code #3
== END 2017-09-30 12:40 | disposition home or self-care (01) ==
LOC: JD.ED 09:17
DX: D50.0 Iron deficiency anemia secondary to blood loss (chronic) (principal); I13.11 Hypertensive heart and chronic kidney disease without heart failure, with stage 5 chronic kidney disease, or end stage renal disease; I50.9 Heart failure, unspecified; E11.22 Type 2 diabetes mellitus with diabetic chronic kidney disease; N18.6 End stage renal disease; R18.8 Other ascites; E78.00 Pure hypercholesterolemia, unspecified; Z79.899 Other long term (current) drug therapy; Z79.4 Long term (current) use of insulin; Z87.891 Personal history of nicotine dependence
CPT/HCPCS: 36415; 74176; 80053; 82140; 82270; 83690; 85025; 87046; 87493; 96374; 99285; J2405; J7050; 99284

== ENCOUNTER 2017-10-30 15:44 | Emergency (ER) | payer MEDICARE, OTHER ==
[2017-10-30 15:58] VITALS: BP 117/85
--- NOTE | 2017-10-30 16:23 | EDM.PDOC ---
ED HPI GENERAL MEDICAL PROBLEM - General Chief Complaint: Upper Extremity Injury/Pain Stated Complaint: BUMP ON RIGHT HAND Time Seen by Provider: 10/30/17 15:55 Source of Information: Reports: Patient, RN Notes Reviewed - History of Present Illness INITIAL COMMENTS - FREE TEXT/NARRATIVE: 67 year old male with hematoma R hand. States it became very large this afternoon at home, now better. Had IV for transfusion dorsom of R hand4 days ago. Does not recall any other injury to hand. Right Hand Pain Score (Numeric/FACES): 0 - Related Data Allergies Allergy/AdvReac Type Severity Reaction Status Date / Time No Known Allergies Allergy Verified 10/30/17 15:55 Home Meds: Home Meds Aspirin [Halfprin] 81 mg PO BEDTIME 03/24/15 [History] Sevelamer Carbonate [Renvela] 800 mg PO TID 03/24/15 [History] Sodium Bicarbonate 650 mg PO BID 03/24/15 [History] Zolpidem Tartrate [Ambien] 1 tab PO BEDTIME PRN 07/31/15 [History] Carvedilol 3.125 mg PO BID 02/05/16 [History] Rosuvastatin Calcium [Crestor] 5 mg PO DAILY 02/05/16 [History] predniSONE [Prednisone] 7.5 mg PO DAILY 02/05/16 [History] Insulin Glargine,Hum.Rec.Anlog [Lantus Solostar] 10 unit SQ BEDTIME PRN [History] Calcium Acetate 667 mg PO TID 09/30/17 [History] Lactulose 5 ml PO BEDTIME PRN 09/30/17 [History] Ondansetron [Zofran ODT] 4 mg PO Q6H PRN 09/30/17 [History] Promethazine [Phenergan] 25 mg PO Q6H PRN 09/30/17 [History] Cephalexin 500 mg PO TID #20 capsule 10/30/17 [Rx] Past Medical History HEENT History: Reports: Cataract, Impaired Vision Cardiovascular History: Reports: Heart Failure, High Cholesterol, Hypertension Other Cardiovascular History: enlarged heart Respiratory History: Reports: Other (See Below) Other Respiratory History: hx pneumonia Gastrointestinal History: Reports: Chronic Constipation, Colon Polyp, GERD, GI Bleed, Other (See Below) Other Gastrointestinal History: hx c.diff Genitourinary History: Reports: Dialysis, Renal Disease Other Genitourinary History: enlarged prostate Musculoskeletal History: Reports: Arthritis, SLE Other Musculoskeletal History: spinal stenosis Neurological History: Reports: CVA, Headaches, Chronic Endocrine/Metabolic History: Reports: Diabetes, Type II Hematologic History: Reports: Blood Transfusion(s) Oncologic (Cancer) History: Reports: Other (See Below) Other Oncologic History: multiple myloma - Infectious Disease History Infectious Disease History: Reports: C-Difficile, Shingles Other Infectious Disease History: hx c. diff and shingles - Past Surgical History HEENT Surgical History: Reports: Oral Surgery Cardiovascular Surgical History: Reports: Vascular Surgery Social & Family History - Family History Family Medical History: Noncontributory Psychiatric: Reports: None Hematologic: Reports: None Immunologic: Reports: None Dermatologic: Reports: None Oncologic: Reports: None - Tobacco Use Smoking Status *Q: Unknown Ever Smoked - Caffeine Use Caffeine Use: Reports: Coffee - Living Situation & Occupation Living situation: Reports: , with Spouse, with Family Occupation: Retired Review of Systems - Review of Systems Review Of Systems: See Below Eyes: Reports: No Symptoms Mouth/Throat: Reports: No Symptoms Respiratory: Denies: Shortness of Breath Cardiovascular: Denies: Chest Pain GI/Abdominal: Denies: Abdominal Pain, Nausea, Vomiting Musculoskeletal: Denies: Joint Swelling Skin: Reports: Bruising (dorsum of R hand) Neurological: Denies: Numbness, Tingling ED EXAM, GENERAL - Physical Exam Exam: See Below General Appearance: Alert, No Apparent Distress Throat/Mouth: Normal Inspection Head: Atraumatic. No: Facial Swelling Neck: Supple, Full Range of Motion Respiratory/Chest: No Respiratory Distress, Lungs Clear, Normal Breath Sounds Cardiovascular: Tachycardia Extremities: Other (moderate sized hematom dorsum of r hand, not inflamed or infected looking at this time. central are of healing, slightly scabbed, apparent site of IV puncture) Neurological: No Motor/Sensory Deficits Skin Exam: Warm, Dry, Normal Color Course - Vital Signs Last Recorded V/S: Last Vital Signs Temp 99.1 F 10/30/17 15:55 Pulse 110 H 10/30/17 15:55 Resp 18 10/30/17 15:55 BP 117/85 10/30/17 15:55 Pulse Ox 98 10/30/17 15:55 Departure - Departure Time of Disposition: 16:18 Disposition: Home, Self-Care 01 Condition: Fair Clinical Impression: Traumatic hematoma of right hand Qualifiers: Encounter type: initial encounter Qualified Code(s): S60.221A - Contusion of right hand, initial encounter - Discharge Information Prescriptions: Cephalexin 500 mg PO TID #20 capsule Referrals: Jojo Bazan, [employer]TAIN [Primary Care Provider] - Forms: ED Department Discharge Additional Instructions: ice packs and elevation for swelling, this will gradually go down over the next 7 to 10 days. Start cephalexin antibiotic only if it becomes very red, infected looking. There is no sign of infection at this time.
== END 2017-10-30 16:35 | disposition home or self-care (01) ==
LOC: JD.ED 15:44
DX: S60.221A Contusion of right hand, initial encounter (principal); I11.0 Hypertensive heart disease with heart failure; I50.9 Heart failure, unspecified; E78.00 Pure hypercholesterolemia, unspecified; Z79.899 Other long term (current) drug therapy; X58.XXXA Exposure to other specified factors, initial encounter
CPT/HCPCS: 99283

== ENCOUNTER 2018-03-14 11:03 | Emergency (ER) | payer MEDICARE, OTHER ==
[2018-03-14 11:12] VITALS: BP 111/71
[2018-03-14] MEDS ORDERED: Sodium Chloride 0.9% 10 ML Syringe FLUSH PRN (11:50)
[2018-03-14] MEDS ORDERED: Pantoprazole 40 MG Vial IVPUSH ONE (11:50)
[2018-03-14] MEDS ORDERED: Pantoprazole 80 MG in Sodium Chloride 0.9% 100 ML IV ONE (11:53)
--- NOTE | 2018-03-14 11:58 | EDM.PDOC ---
ED HPI GENERAL MEDICAL PROBLEM - General Chief Complaint: General Stated Complaint: SENT BY [facility] FOR EVALUATION Time Seen by Provider: 03/14/18 11:49 Source of Information: Reports: Patient History Limitations: Reports: No Limitations - History of Present Illness INITIAL COMMENTS - FREE TEXT/NARRATIVE: Patient is a 67-year-old male patient with history of ESRD on dialysis who presents to the ED with concerns of low hemoglobin. Blood work was completed at dialysis this morning. Hemoglobin was found to be 7.6. Patient is chronically dizzy since he's been on dialysis. Reports he's had dark tarry stools for the past month or so. He has a history of GI bleed in the past. Continues to take aspirin 81 mg on a daily basis. At times has some epigastric discomfort. No ellen red blood in the stool. Patient does make little urine but does not recall how much. Denies any fever, chills, worsening shortness of breath, chest pain, or any additional complaints. Patient has had an EGD and colonoscopy 2 years ago with findings of polyps. He has no history of stomach ulcers. Denies taking any NSAIDs. Nursing staff at dialysis had been in contact with Dr. Atkins with recommendation to come to the ED for further workup and transfusion of blood. Treatments IT ANALYST: Reports: Other (see below) - Related Data Allergies Allergy/AdvReac Type Severity Reaction Status Date / Time No Known Allergies Allergy Verified 10/30/17 15:55 Home Meds: Home Meds Aspirin [Halfprin] 81 mg PO BEDTIME 03/24/15 [History] Sevelamer Carbonate [Renvela] 800 mg PO TID 03/24/15 [History] Sodium Bicarbonate 650 mg PO BID 03/24/15 [History] Zolpidem Tartrate [Ambien] 1 tab PO BEDTIME PRN 07/31/15 [History] Carvedilol 3.125 mg PO BID 02/05/16 [History] Rosuvastatin Calcium [Crestor] 5 mg PO DAILY 02/05/16 [History] predniSONE [Prednisone] 7.5 mg PO DAILY 02/05/16 [History] Calcium Acetate 667 mg PO TID 09/30/17 [History] Lactulose 5 ml PO BEDTIME PRN 09/30/17 [History] Ondansetron [Zofran ODT] 4 mg PO Q6H PRN 09/30/17 [History] Promethazine [Phenergan] 25 mg PO Q6H PRN 09/30/17 [History] Past Medical History HEENT History: Reports: Cataract, Impaired Vision Cardiovascular History: Reports: Heart Failure, High Cholesterol, Hypertension Other Cardiovascular History: enlarged heart Respiratory History: Reports: Other (See Below) Other Respiratory History: hx pneumonia Gastrointestinal History: Reports: Chronic Constipation, Colon Polyp, GERD, GI Bleed, Other (See Below) Other Gastrointestinal History: hx c.diff Genitourinary History: Reports: Dialysis, Renal Disease Other Genitourinary History: enlarged prostate Musculoskeletal History: Reports: Arthritis, SLE Other Musculoskeletal History: spinal stenosis Neurological History: Reports: CVA, Headaches, Chronic Endocrine/Metabolic History: Reports: Diabetes, Type II Hematologic History: Reports: Blood Transfusion(s) Oncologic (Cancer) History: Reports: Other (See Below) Other Oncologic History: multiple myloma - Infectious Disease History Infectious Disease History: Reports: C-Difficile, Shingles Other Infectious Disease History: hx c. diff and shingles - Past Surgical History HEENT Surgical History: Reports: Oral Surgery Cardiovascular Surgical History: Reports: Vascular Surgery Social & Family History - Family History Family Medical History: Noncontributory Psychiatric: Reports: None Hematologic: Reports: None Immunologic: Reports: None Dermatologic: Reports: None Oncologic: Reports: None - Tobacco Use Smoking Status *Q: Former Smoker Used Tobacco, but Quit: Yes Month/Year Tobacco Last Used: 6 yrs - Caffeine Use Caffeine Use: Reports: Coffee, Soda - Recreational Drug Use Recreational Drug Use: No - Living Situation & Occupation Living situation: Reports: , with Spouse, with Family Occupation: Retired ED ROS GENERAL - Review of Systems Review Of Systems: ROS reveals no pertinent complaints other than HPI. ED EXAM, GENERAL - Physical Exam Exam: See Below Exam Limited By: No Limitations General Appearance: Alert, WD/WN, No Apparent Distress Ears: Hearing Grossly Normal Nose: Normal Inspection Throat/Mouth: Normal Voice, No Airway Compromise Neck: Normal Inspection, Supple Respiratory/Chest: No Respiratory Distress, Lungs Clear, Normal Breath Sounds, No Accessory Muscle Use, Chest Non-Tender Cardiovascular: Normal Peripheral Pulses, Regular Rate, Rhythm, Systolic Murmur Peripheral Pulses: 2+: Radial (L), Radial (R) GI/Abdominal: Normal Bowel Sounds, Soft, Non-Tender, No Organomegaly, No Distention Extremities: Normal Inspection, Other (Shunt to the left forearm. ). No: No Pedal Edema (trace) Neurological: Alert, Oriented, CN II-XII Intact, Normal Cognition, No Motor/ Sensory Deficits Psychiatric: Normal Affect, Normal Mood Skin Exam: Warm, Dry, Intact, Normal Color, No Rash Course - Vital Signs Last Recorded V/S: Last Vital Signs Temp 98.1 F 03/14/18 11:11 Pulse 87 03/14/18 11:11 Resp 20 03/14/18 11:11 BP 111/71 03/14/18 11:11 Pulse Ox 99 03/14/18 11:11 - Orders/Labs/Meds Labs: Laboratory Tests 03/14/18 03/14/18 03/14/18 Range/Units 12:04 12:04 12:04 WBC 4.02 L (4.23-9.07) K/mm3 RBC 2.42 L (4.63-6.08) M/mm3 Hgb 7.8 L (13.7-17.5) gm/L Hct 25.0 L (40.1-51.0) % MCV 103.3 H (79.0-92.2) fl MCH 32.2 (25.7-32.2) pg MCHC 31.2 L (32.2-35.5) g/dl RDW Std Deviation 57.9 H (35.1-43.9) fL Plt Count 164 (163-337) K/mm3 MPV 9.3 L (9.4-12.3) fl Neutrophils % (Manual) 73 H (40-60) % Band Neutrophils % 0 (0-10) % Lymphocytes % (Manual) 15 L (20-40) % Atypical Lymphs % 0 % Monocytes % (Manual) 7 (2-10) % Eosinophils % (Manual) 4 (0.8-7.0) % Basophils % (Manual) 1 (0.2-1.2) Platelet Estimate Adequate Poikilocytosis 1+ slight Anisocytosis 1+ slight RBC Morph Comment Not Reportable PT (9.5-12.1) SECONDS INR APTT (24-31) SECONDS Sodium 139 (136-145) mEq/L Potassium 3.5 (3.5-5.1) mEq/L Chloride 102 (98-107) mEq/L Carbon Dioxide 33 H (21-32) mEq/L Anion Gap 7.5 (5-15) BUN 14 (7-18) mg/dL Creatinine 3.5 H (0.7-1.3) mg/dL Est Cr Clr Drug Dosing 21.15 mL/min Estimated GFR (MDRD) 18 (>60) mL/min BUN/Creatinine Ratio 4.0 L (14-18) Glucose 89 (80-115) mg/dL Calcium 8.8 (8.5-10.1) mg/dL Total Bilirubin 0.6 (0.2-1.0) mg/dL AST 13 L (15-37) U/L ALT 13 L (16-63) U/L Alkaline Phosphatase 84 (46-116) U/L C-Reactive Protein 0.6 (<1.0) mg/dL Total Protein 6.9 (6.4-8.2) g/dl Albumin 3.1 L (3.4-5.0) g/dl Globulin 3.8 gm/dL Albumin/Globulin Ratio 0.8 L (1-2) Lipase 135 (73-393) U/L Blood Type O POSITIVE Gel Antibody Screen Negative Crossmatch See Detail 03/14/18 Range/Units 12:04 WBC (4.23-9.07) K/mm3 RBC (4.63-6.08) M/mm3 Hgb (13.7-17.5) gm/L Hct (40.1-51.0) % MCV (79.0-92.2) fl MCH (25.7-32.2) pg MCHC (32.2-35.5) g/dl RDW Std Deviation (35.1-43.9) fL Plt Count (163-337) K/mm3 MPV (9.4-12.3) fl Neutrophils % (Manual) (40-60) % Band Neutrophils % (0-10) % Lymphocytes % (Manual) (20-40) % Atypical Lymphs % % Monocytes % (Manual) (2-10) % Eosinophils % (Manual) (0.8-7.0) % Basophils % (Manual) (0.2-1.2) Platelet Estimate Poikilocytosis Anisocytosis RBC Morph Comment PT 11.6 (9.5-12.1) SECONDS INR 1.07 APTT 28 (24-31) SECONDS Sodium (136-145) mEq/L Potassium (3.5-5.1) mEq/L Chloride (98-107) mEq/L Carbon Dioxide (21-32) mEq/L Anion Gap (5-15) BUN (7-18) mg/dL Creatinine (0.7-1.3) mg/dL Est Cr Clr Drug Dosing mL/min Estimated GFR (MDRD) (>60) mL/min BUN/Creatinine Ratio (14-18) Glucose (80-115) mg/dL Calcium (8.5-10.1) mg/dL Total Bilirubin (0.2-1.0) mg/dL AST (15-37) U/L ALT (16-63) U/L Alkaline Phosphatase (46-116) U/L C-Reactive Protein (<1.0) mg/dL Total Protein (6.4-8.2) g/dl Albumin (3.4-5.0) g/dl Globulin gm/dL Albumin/Globulin Ratio (1-2) Lipase (73-393) U/L Blood Type Gel Antibody Screen Crossmatch Meds: Medications Discontinued Medications Generic Name Dose Route Start Last Admin Trade Name Freq PRN Reason Stop Dose Admin Pantoprazole Sodium 80 mg/ 100 mls @ 10 mls/hr 03/14/18 11:53 03/14/18 13:09 Sodium Chloride IV 03/14/18 21:52 Not Given ONETIME ONE Pantoprazole Sodium 80 mg 03/14/18 11:50 03/14/18 12:12 Protonix Iv IVPUSH 03/14/18 11:51 80 mg .BOLUS ONE Administration Sodium Chloride 10 ml 03/14/18 11:50 03/14/18 12:09 Saline Flush FLUSH 10 ml ASDIRECTED PRN Administration Keep Vein Open - Re-Assessments/Exams Free Text/Narrative Re-Assessment/Exam: Digital rectal exam revealed stool was positive for blood. IV established with Protonix 80 mg bolus and IV drip. Initial labs and studies will include: CBC, chem 14, CRP, lipase, coag studies, type and screen. Suspect patient would benefit transfer to [place] for inpatient evaluation for GI bleed. Patient is a dialysis patient and with the additional fluids from blood transfusion may require additional dialysis. In addition with reoccuring administration of heparin and inability for close followup with surgeon due to the weekend. I would rather transfer patient for further evaluation. [address] Atkins. Agrees patient needs further workup for GI bleed. Patient may be admitted to the [facility] and/or follow-up with general surgery on the outpatient basis after receiving transfusion of blood here in the ED. If required patient may receive extra day of dialysis tomorrow outpatient in [place]. 1214 Discussed options with patient. He refuses to be transferred via ambulance. Wishes to be admitted to [facility] in [place] for further evaluation. He will go by POV and have transfusions at [facility]. Discontinued Protonix drip. Labs reviewed:Labs reviewed: White blood cell count 4.02, hemoglobin 7.8, MCV 103, platelet count 164, sodium 139, potassium 3.5, CO2 33, AG 7.5, creatinine 3.5, CRP 0.6, lipase 135. 1302 Called [facility] call. Spoke with Dr. Meek outside sales consultant Hospitalists. He has agreed to admit the patient. Patient has refused transport via ambulance. Patient will be a direct admit. Discharge instructions as documented. The patient remained hemodynamically stable while under my care in the E.D. I discussed the concerning symptoms for which to returnto the E.D. with the patient/family. The patient/family verbalized understanding. All questions were answered. Departure - Departure Time of Disposition: 13:31 Disposition: Home, Self-Care 01 Condition: Good Clinical Impression: ESRD (end stage renal disease) on dialysis GI bleed Qualifiers: GI bleed type/associated pathology: unspecified gastrointestinal hemorrhage type Qualified Code(s): K92.2 - Gastrointestinal hemorrhage, unspecified - Discharge Information Instructions: Gastrointestinal Bleeding Referrals: Jojo Bazan PROGRAM AND RESEARCH COORDINATOR [Primary Care Provider] - Forms: ED Department Discharge Additional Instructions: Go directly to [facility] for direct admission to the hospital for GI bleed. Dr. Meek has accepted you. They are expecting you to be at the hospital by 1630 central time. If you should experience any worsening symptoms please go directly to the E.D.
== END 2018-03-14 13:50 | disposition home or self-care (01) ==
LOC: JD.ED 11:03 → SUPCPDRO 11:03 → JD.ED 13:50
DX: I13.2 Hypertensive heart and chronic kidney disease with heart failure and with stage 5 chronic kidney disease, or end stage renal disease (principal); N18.6 End stage renal disease; E11.22 Type 2 diabetes mellitus with diabetic chronic kidney disease; I50.9 Heart failure, unspecified; K92.2 Gastrointestinal hemorrhage, unspecified; Z87.891 Personal history of nicotine dependence; Z79.899 Other long term (current) drug therapy; Z99.2 Dependence on renal dialysis
CPT/HCPCS: 36415; 80053; 83690; 85007; 85027; 85610; 85730; 86140; 86850; 86900; 86901; 96374; 99285; C9113; J7050

== ENCOUNTER 2018-07-04 10:52 | Emergency (ER) | payer MEDICARE, OTHER ==
[2018-07-04 11:12] VITALS: BP 128/72
--- NOTE | 2018-07-04 12:02 | EDM.PDOC ---
ED HPI GENERAL MEDICAL PROBLEM - General Chief Complaint: General Stated Complaint: SENTBY DIALYSIS FOR EVALUATION/ BLOOD TRANSFUSION Time Seen by Provider: 07/04/18 11:35 Source of Information: Reports: Patient History Limitations: Reports: No Limitations - History of Present Illness INITIAL COMMENTS - FREE TEXT/NARRATIVE: 68-year-old male is sent by [facility] for evaluation treatment of a low hemoglobin. Patient has been feeling lightheaded and dizzy for the last few weeks. He states that he has "little bit" of short of breath. No chest pain or syncope. He has not appreciating his blood in his stool. No diarrhea. Last bowel movement was this morning. He states that he does make some urine and urinated this morning. Reports earlier this week he did feel fevered, chilled and had a slight cough. Did have an influenza vaccine this season has not been around anybody with flu that he knows of. states and was brought him to the ER due to him feeling poorly earlier this week. Patient was diagnosed with C. difficile about 4 weeks ago and placed on an antibiotic. He states he did not have any diarrhea with the C. difficile. He did have some abdominal earlier prior to his diagnosis but has not had any since. Patient is not on any blood thinners. He states that he does not take any NSAIDs or use any aspirin. Patient's dialysis is managed by Dr. Atkins in [place]. He also sees Dr. Rizvi for history of multiple myeloma. He states that he has been in remission for the last year has not been on chemotherapy for the last year. Primary care provider in [place] is Jojo Bazan. Review the patient's records show he was seen in February for similar symptoms. He was transported to [place]. Refused ambulance transfer and went by private veh. He had an EGD and colonoscopy done. He states that they found some polyps on the schedule have a colonoscopy again in the next 3-4 years his ECG was clear without any ulcers. - Related Data Allergies Allergy/AdvReac Type Severity Reaction Status Date / Time No Known Allergies Allergy Verified 10/30/17 15:55 Home Meds: Home Meds Sodium Bicarbonate 650 mg PO BID 03/24/15 [History] Zolpidem Tartrate [Ambien] 1 tab PO BEDTIME PRN 07/31/15 [History] Rosuvastatin Calcium [Crestor] 5 mg PO DAILY 02/05/16 [History] predniSONE [Prednisone] 7.5 mg PO DAILY 02/05/16 [History] Ondansetron [Zofran ODT] 4 mg PO Q6H PRN 09/30/17 [History] Fluticasone Furoate [Flonase Sensimist] 1 spray INH BID 07/04/18 [History] Insulin Glargine,Hum.Rec.Anlog [Lantus Solostar] 1 dose SUBCUT ASDIRECTED [History] Lactulose [Enulose] 30 ml PO QPM PRN 07/04/18 [History] Metoprolol Succinate 25 mg PO BID 07/04/18 [History] Vancomycin HCl [Firvanq] 2.5 ml PO BID 07/04/18 [History] hydrOXYzine HCl [hydrOXYzine] 10 mg PO TID PRN 07/04/18 [History] traMADol HCl [Tramadol HCl] 50 mg PO Q12HR PRN 07/04/18 [History] Past Medical History HEENT History: Reports: Cataract, Impaired Vision Cardiovascular History: Reports: Heart Failure, High Cholesterol, Hypertension Other Cardiovascular History: enlarged heart Respiratory History: Reports: Other (See Below) Other Respiratory History: hx pneumonia Gastrointestinal History: Reports: Chronic Constipation, Colon Polyp, GERD, GI Bleed, Other (See Below) Other Gastrointestinal History: hx c.diff Genitourinary History: Reports: Dialysis, Renal Disease Other Genitourinary History: enlarged prostate Musculoskeletal History: Reports: Arthritis, SLE Other Musculoskeletal History: spinal stenosis Neurological History: Reports: CVA, Headaches, Chronic Endocrine/Metabolic History: Reports: Diabetes, Type II Hematologic History: Reports: Blood Transfusion(s) Oncologic (Cancer) History: Reports: Other (See Below) Other Oncologic History: multiple myloma - Infectious Disease History Infectious Disease History: Reports: C-Difficile, Shingles Other Infectious Disease History: hx c. diff and shingles - Past Surgical History HEENT Surgical History: Reports: Oral Surgery Cardiovascular Surgical History: Reports: Vascular Surgery Social & Family History - Family History Family Medical History: Noncontributory Psychiatric: Reports: None Hematologic: Reports: None Immunologic: Reports: None Dermatologic: Reports: None Oncologic: Reports: None - Tobacco Use Smoking Status *Q: Never Smoker - Caffeine Use Caffeine Use: Reports: None - Recreational Drug Use Recreational Drug Use: No - Living Situation & Occupation Living situation: Reports: , with Spouse, with Family Occupation: Retired ED ROS GENERAL - Review of Systems Review Of Systems: See Below Constitutional: Reports: Fever (none currently, few days prior), Chills (non currently, few days prior), Weakness, Fatigue Respiratory: Reports: Shortness of Breath ("little bit" ) Cardiovascular: Reports: Lightheadedness. Denies: Chest Pain GI/Abdominal: Denies: Abdominal Pain (none currently, had abdominal pain abuot 3 -4 weeks ago prior to beng diagnoised with c.diff), Diarrhea, Nausea, Vomiting Neurological: Reports: Dizziness. Denies: Syncope ED EXAM, GENERAL - Physical Exam Exam: See Below Exam Limited By: No Limitations General Appearance: Alert, WD/WN, No Apparent Distress, Obese Nose: Normal Inspection Throat/Mouth: Normal Inspection Respiratory/Chest: No Respiratory Distress, Lungs Clear, Normal Breath Sounds Cardiovascular: Normal Peripheral Pulses, Regular Rate, Rhythm GI/Abdominal: Normal Bowel Sounds, Soft, Non-Tender Rectal (Males) Exam: Normal Exam, Normal Rectal Tone, Heme + Stool Neurological: Alert, Oriented, Normal Cognition Psychiatric: Normal Affect, Normal Mood Skin Exam: Warm, Dry, Normal Color Course - Vital Signs Last Recorded V/S: Last Vital Signs Temp 97.1 F 07/04/18 11:07 Pulse 86 07/04/18 11:07 Resp 14 07/04/18 11:07 BP 128/72 07/04/18 11:07 Pulse Ox 100 07/04/18 11:07 Orthostatic Blood Pressure [ 105/63 Standing] Orthostatic Blood Pressure [ 120/68 Sitting] Orthostatic Blood Pressure [ 100/78 Supine] - Orders/Labs/Meds Orders: Active Orders 24 hr Category Date Time Status Cardiac Monitoring [RC] . DIRECTED Care 07/04/18 11:55 Active Orthostatic Vital Signs [RC] ASDIRECTED Care 07/04/18 11:46 Active Labs: Laboratory Tests 07/04/18 07/04/18 07/04/18 Range/Units 11:10 11:10 11:10 WBC 7.67 (4.23-9.07) K/mm3 RBC 2.18 L (4.63-6.08) M/mm3 Hgb 7.1 L* (13.7-17.5) gm/L Hct 22.9 L (40.1-51.0) % MCV 105.0 H (79.0-92.2) fl MCH 32.6 H (25.7-32.2) pg MCHC 31.0 L (32.2-35.5) g/dl RDW Std Deviation 59.3 H (35.1-43.9) fL Plt Count 151 L (163-337) K/mm3 MPV 10.4 (9.4-12.3) fl Neutrophils % (Manual) 93 H (40-60) % Band Neutrophils % 0 (0-10) % Lymphocytes % (Manual) 4 L (20-40) % Atypical Lymphs % 0 % Monocytes % (Manual) 2 (2-10) % Eosinophils % (Manual) 1 (0.8-7.0) % Basophils % (Manual) 0 L (0.2-1.2) Nucleated RBCs 1.0 % Platelet Estimate Adequate Polychromasia 2+ moderate Basophilic Stippling 1+ slight Anisocytosis 2+ moderate Macrocytosis 1+ slight RBC Morph Comment Not Reportable PT 11.4 (9.5-12.1) SECONDS INR 1.05 APTT 23 L (24-31) SECONDS Sodium 140 (136-145) mEq/L Potassium 3.8 (3.5-5.1) mEq/L Chloride 97 L (98-107) mEq/L Carbon Dioxide 33 H (21-32) mEq/L Anion Gap 13.8 (5-15) BUN 19 H (7-18) mg/dL Creatinine 3.1 H (0.7-1.3) mg/dL Est Cr Clr Drug Dosing 21.32 mL/min Estimated GFR (MDRD) 20 (>60) mL/min BUN/Creatinine Ratio 6.1 L (14-18) Glucose 118 H (80-115) mg/dL Calcium 8.7 (8.5-10.1) mg/dL Total Bilirubin 1.0 (0.2-1.0) mg/dL AST 19 (15-37) U/L ALT 40 (16-63) U/L Alkaline Phosphatase 107 (46-116) U/L NT-Pro-B Natriuret Pep (0-125) pg/mL Total Protein 7.3 (6.4-8.2) g/dl Albumin 3.4 (3.4-5.0) g/dl Globulin 3.9 gm/dL Albumin/Globulin Ratio 0.9 L (1-2) Blood Type Gel Antibody Screen 07/04/18 07/04/18 Range/Units 11:10 11:10 WBC (4.23-9.07) K/mm3 RBC (4.63-6.08) M/mm3 Hgb (13.7-17.5) gm/L Hct (40.1-51.0) % MCV (79.0-92.2) fl MCH (25.7-32.2) pg MCHC (32.2-35.5) g/dl RDW Std Deviation (35.1-43.9) fL Plt Count (163-337) K/mm3 MPV (9.4-12.3) fl Neutrophils % (Manual) (40-60) % Band Neutrophils % (0-10) % Lymphocytes % (Manual) (20-40) % Atypical Lymphs % % Monocytes % (Manual) (2-10) % Eosinophils % (Manual) (0.8-7.0) % Basophils % (Manual) (0.2-1.2) Nucleated RBCs % Platelet Estimate Polychromasia Basophilic Stippling Anisocytosis Macrocytosis RBC Morph Comment PT (9.5-12.1) SECONDS INR APTT (24-31) SECONDS Sodium (136-145) mEq/L Potassium (3.5-5.1) mEq/L Chloride (98-107) mEq/L Carbon Dioxide (21-32) mEq/L Anion Gap (5-15) BUN (7-18) mg/dL Creatinine (0.7-1.3) mg/dL Est Cr Clr Drug Dosing mL/min Estimated GFR (MDRD) (>60) mL/min BUN/Creatinine Ratio (14-18) Glucose (80-115) mg/dL Calcium (8.5-10.1) mg/dL Total Bilirubin (0.2-1.0) mg/dL AST (15-37) U/L ALT (16-63) U/L Alkaline Phosphatase (46-116) U/L NT-Pro-B Natriuret Pep 89675 H (0-125) pg/mL Total Protein (6.4-8.2) g/dl Albumin (3.4-5.0) g/dl Globulin gm/dL Albumin/Globulin Ratio (1-2) Blood Type O POSITIVE Gel Antibody Screen Negative - Radiology Interpretation Free Text/Narrative:: Chest: Portable view of the chest was obtained. Comparison: Prior chest x-ray of 07/31/17. Slight scarring is noted within the lateral left costophrenic angle. Lungs otherwise are clear with no acute parenchymal change. Heart is mildly enlarged. Tortuous thoracic aorta is seen. Bony structures are grossly intact. Impression: 1. Findings as noted above. Nothing acute is appreciated. - Re-Assessments/Exams Free Text/Narrative Re-Assessment/Exam: 07/04/18 13:23 Reviewed the labs and imaging with the patient and his . Recommending admission due to his multiple comorbid conditions and low hemoglobin. Case discussed with Dr. Oakley, recommending transfer to [place] as he is a dialysis patient. 07/04/18 14:[address] Escobedo at [facility] in [place]. Agree to accept the patient. Patient refuses ambulance transfer and will go by private vehicle. He will need to go through the ED to ensure that he is stable prior to being a direct admission. Departure - Departure Time of Disposition: 14:50 Disposition: DC/Tfer to [facility] 02 Condition: Serious Clinical Impression: C. difficile diarrhea GI bleed Qualifiers: GI bleed type/associated pathology: unspecified gastrointestinal hemorrhage type Qualified Code(s): K92.2 - Gastrointestinal hemorrhage, unspecified Congestive heart failure (CHF) Qualifiers: Qualified Code(s): I50.42 - Chronic combined systolic (congestive) and diastolic (congestive) heart failure Anemia Qualifiers: Iron deficiency anemia type: chronic blood loss Qualified Code(s): D50.0 - Iron deficiency anemia secondary to blood loss (chronic) - Discharge Information *PRESCRIPTION DRUG MONITORING PROGRAM REVIEWED*: No *COPY OF PRESCRIPTION DRUG MONITORING REPORT IN PATIENT [place]: No Referrals: Jojo Bazan, [employer] [Primary Care Provider] - Forms: ED Department Discharge Additional Instructions: Go directly to the ER in [place] at [facility]. Dr. Denny the hospitalist has accepted you however, you will need to be seen in the ER prior to being admitted to the floor to ensure you are stable. - My Orders Last 24 Hours: My Active Orders 07/04/18 11:46 Orthostatic Vital Signs [RC] ASDIRECTED 07/04/18 11:55 Cardiac Monitoring [RC] . DIRECTED - Assessment/Plan Last 24 Hours: My Active Orders 07/04/18 11:46 Orthostatic Vital Signs [RC] ASDIRECTED 07/04/18 11:55 Cardiac Monitoring [RC] . DIRECTED
--- NOTE | 2018-07-04 12:49 | CR ---
Chest: Portable view of the chest was obtained. Comparison: Prior chest x-ray of 07/31/17. Slight scarring is noted within the lateral left costophrenic angle. Lungs otherwise are clear with no acute parenchymal change. Heart is mildly enlarged. Tortuous thoracic aorta is seen. Bony structures are grossly intact. Impression: 1. Findings as noted above. Nothing acute is appreciated. Diagnostic code #2
== END 2018-07-04 15:00 ==
LOC: JD.ED 10:52
DX: A04.72 Enterocolitis due to Clostridium difficile, not specified as recurrent (principal); K92.2 Gastrointestinal hemorrhage, unspecified; I11.0 Hypertensive heart disease with heart failure; I50.42 Chronic combined systolic (congestive) and diastolic (congestive) heart failure; D50.0 Iron deficiency anemia secondary to blood loss (chronic); E11.9 Type 2 diabetes mellitus without complications; Z79.4 Long term (current) use of insulin
CPT/HCPCS: 36415; 71045; 71045-26; 80053; 83880; 85007; 85027; 85610; 85730; 86850; 86900; 86901; 87804; 99285

== ENCOUNTER 2018-11-05 12:57 | Emergency (ER) | payer MEDICARE, OTHER ==
--- NOTE | 2018-11-05 13:50 | EDM.PDOC ---
ED HPI GENERAL MEDICAL PROBLEM - General Chief Complaint: Cardiovascular Problem Stated Complaint: LOW HEMOGLOBIN Time Seen by Provider: 11/05/18 13:23 Source of Information: Reports: Patient, Family (), RN Notes Reviewed History Limitations: Reports: No Limitations - History of Present Illness INITIAL COMMENTS - FREE TEXT/NARRATIVE: The patient has end-stage renal disease, on hemodialysis every Saturday, Saturday , and Saturday. He went to hemodialysis today, but was then called after he went home, instructed to go to the ER for blood transfusion, because his hemoglobin was 6.8. He is not sure if blood was drawn while he was receiving hemodialysis, or if it was from a blood draw obtained 11/03/2018. The patient states that he has been feeling generally weak and tired for the past couple of weeks. He denies any recent bloody bowel movements, chest pain, palpitations, or dyspnea. No abdominal pain. He denies being lightheaded when upright. The patient has had anemia in the past. The patient's PCP is Jojo Bazan. His Supervisor In [employer] Testing is Dr. Tyson Atkins. His Paper Tube Cutter is Dr. Cadence Dickey His Oncologist is Dr. Cheng Robles. - Related Data Allergies Allergy/AdvReac Type Severity Reaction Status Date / Time No Known Allergies Allergy Verified 11/05/18 13:06 Home Meds: Home Meds Sodium Bicarbonate 650 mg PO BID 03/24/15 [History] Zolpidem Tartrate [Ambien] 1 tab PO BEDTIME PRN 07/31/15 [History] Rosuvastatin Calcium [Crestor] 5 mg PO DAILY 02/05/16 [History] predniSONE [Prednisone] 7.5 mg PO DAILY 02/05/16 [History] Metoprolol Succinate 25 mg PO BID 07/04/18 [History] hydrOXYzine HCl [hydrOXYzine] 10 mg PO TID PRN 07/04/18 [History] Benzonatate 200 mg PO TID PRN 11/05/18 [History] Dexamethasone 40 mg PO WEEKLY 11/05/18 [History] Orphenadrine Citrate [Orphenadrine Citrate ER] 100 mg PO BID PRN 11/05/18 [ History] Sevelamer HCl [Renagel] 2,400 mg PO TIDMEALS 11/05/18 [History] Sevelamer HCl [Renagel] 800 mg PO DAILY 11/05/18 [History] Past Medical History HEENT History: Reports: Impaired Vision Cardiovascular History: Reports: Heart Failure, High Cholesterol, Hypertension Gastrointestinal History: Reports: Colon Polyp, GERD, GI Bleed Genitourinary History: Reports: BPH, Dialysis (Q Mon, Wed, Fri) Musculoskeletal History: Reports: Back Pain, Chronic (spinal stenosis), Osteoarthritis Neurological History: Reports: CVA, Headaches, Chronic Endocrine/Metabolic History: Reports: Diabetes, Type II, Obesity/BMI 30+ Hematologic History: Reports: Anemia, Blood Transfusion(s) Immunologic History: Reports: SLE Oncologic (Cancer) History: Reports: Other (See Below) (Multiple myeloma) - Infectious Disease History Infectious Disease History: Reports: C-Difficile, Shingles - Past Surgical History HEENT Surgical History: Reports: Oral Surgery (wisdom teeth extraction) Cardiovascular Surgical History: Reports: Vascular Surgery (LUE AVF) GI Surgical History: Reports: Cholecystectomy (around 2014) Social & Family History - Family History Family Medical History: Noncontributory Psychiatric: Reports: None Hematologic: Reports: None Immunologic: Reports: None Dermatologic: Reports: None Oncologic: Reports: None - Tobacco Use Smoking Status *Q: Former Smoker Years of Tobacco use: 40 Packs/Tins Daily: 0.5 Month/Year Tobacco Last Used: Quit around 2014 - Caffeine Use Caffeine Use: Reports: None - Alcohol Use Alcohol Use History: Yes Alcohol Use Frequency: Socially - Recreational Drug Use Recreational Drug Use: No - Living Situation & Occupation Living situation: Reports: , with Spouse, with Family (Daughter, 2 grandsons) Occupation: Retired ED ROS GENERAL - Review of Systems Review Of Systems: ROS reveals no pertinent complaints other than HPI. ED EXAM, GENERAL - Physical Exam Exam: See Below Exam Limited By: No Limitations General Appearance: Alert, WD/WN, No Apparent Distress Eye Exam: Bilateral Eye: EOMI, Normal Inspection Ears: Normal External Exam, Hearing Grossly Normal Nose: Normal Inspection Throat/Mouth: Normal Inspection, Normal Lips, Normal Voice, No Airway Compromise Head: Atraumatic, Normocephalic Neck: Normal Inspection, Full Range of Motion Respiratory/Chest: No Respiratory Distress, Lungs Clear, Normal Breath Sounds, No Accessory Muscle Use Cardiovascular: Normal Peripheral Pulses, Regular Rate, Rhythm, No Gallop, No JVD, No Murmur, No Rub Peripheral Pulses: 4+: Radial (L), Radial (R) GI/Abdominal: Normal Bowel Sounds, Soft, Non-Tender, No Organomegaly, No Distention, No Abnormal Bruit, No Mass (Male) Exam: Deferred Rectal (Males) Exam: Deferred Back Exam: Normal Inspection, Full Range of Motion, NT Extremities: Normal Range of Motion, Normal Capillary Refill, Other (Good thrill left upper extremity AVF) Neurological: Alert, Oriented, Normal Cognition, No Motor/Sensory Deficits Psychiatric: Normal Affect Skin Exam: Warm, Dry, Intact, Normal Color, No Rash Course - Vital Signs Last Recorded V/S: Last Vital Signs Temp 37.1 C 11/05/18 18:08 Pulse 95 11/05/18 18:08 Resp 18 11/05/18 18:08 BP 122/78 11/05/18 18:08 Pulse Ox 97 11/05/18 18:08 Orthostatic Blood Pressure [ 115/71 Standing] Orthostatic Blood Pressure [ 107/69 Sitting] Orthostatic Blood Pressure [ 104/64 Supine] - Orders/Labs/Meds Orders: Active Orders 24 hr Category Date Time Status Orthostatic Vital Signs [RC] STAT Care 11/05/18 13:43 Active RED BLOOD CELLS LP [BBK] Routine Lab 11/05/18 13:59 Results Transfuse PRBC [Transfuse Red Blood Cells] [COMM] Stat Oth 11/05/18 14:13 Ordered Labs: Laboratory Tests 11/05/18 11/05/18 11/05/18 Range/Units 13:56 13:59 13:59 Hgb 6.5 L* D (13.7-17.5) gm/L Hct 21.6 L (40.1-51.0) % Blood Type O POSITIVE Gel Antibody Screen Negative Crossmatch See Detail See Detail Meds: Medications Discontinued Medications Generic Name Dose Route Start Last Admin Trade Name Freq PRN Reason Stop Dose Admin Furosemide 20 mg 11/05/18 15:01 11/05/18 15:15 Lasix PO 11/05/18 15:02 20 mg ONETIME ONE Administration Furosemide 80 mg 11/05/18 15:02 11/05/18 15:15 Lasix PO 11/05/18 15:03 80 mg ONETIME ONE Administration Sodium Chloride Confirm 11/05/18 15:52 Normal Saline Administered 11/05/18 15:53 Dose 250 mls @ as directed .ROUTE .[facility] ONE - Re-Assessments/Exams Free Text/Narrative Re-Assessment/Exam: 11/05/18 13:49 The patient is unsure when his hemoglobin was checked - it could have been today while he was receiving dialysis, but it could have been Saturday, 2018. I have therefore ordered a H/H, along with orthostatics. Based on those results, I will determine if the patient requires a PRBC transfusion. 11/05/18 14:09 The patient's H/H has returned depressed at 6.5/21.6. He is not orthostatic. Given that the patient is not orthostatic, he appears to be adequately volume expanded. Given his renal insufficiency and our inability to provide dialysis if he becomes fluid overloaded, I believe it would be prudent if we were conservative with PRBC replacement, for once given, it cannot be withdrawn. I'm therefore going to order only 1 unit of PRBC transfusion. I will attempt to discuss the case with his Supervisor In [employer], Dr. Atkins, but the patient could potentially receive a second unit at hemodialysis on 11/07/2018. 11/05/18 14:[address] Jordan, Supervisor In [employer] nutritional yeast supervisor for Dr. Atkins, at 14:27. He recommended that we type and crossmatch 2 units of PRBCs now, but give the patient only 1 unit today, then a second unit tomorrow. He recommended we give the patient 100 mg oral Lasix today, and again tomorrow. I discussed this with the blood bank. The will go ahead and type and crossmatch 2 units. I will arrange with the charge nurse the return of the patient for an outpatient transfusion tomorrow. 11/05/18 18:16 The patient's single unit PRBC transfusion has finished. I will discharge him home. He may return tomorrow at his convenience, to receive a second PRBC unit and an additional 100 mg oral Lasix. Departure - Departure Time of Disposition: 18:17 Disposition: Home, Self-Care 01 Condition: Good Clinical Impression: ESRD (end stage renal disease) on dialysis Anemia Qualifiers: Iron deficiency anemia type: chronic blood loss Qualified Code(s): D50.0 - Iron deficiency anemia secondary to blood loss (chronic) Referrals: Jojo Bazan NP [Primary Care Provider] - Luca Atkins MD [Ordering Only Provider] - Cadence Dickey MD [Consulting Physician] - Forms: ED Department Discharge Additional Instructions: You were seen in the emergency room for significant anemia. Workup in the ER included a hemogram and orthostatics, which found your hemoglobin to be depressed at 6.5. Your blood pressure maintained itself between lying and standing. Your case was discussed with Dr. Jordan, a Supervisor In [employer] nutritional yeast supervisor for your Supervisor In [employer], Dr. Atkins. You received a single unit of red blood cells and 100 mg of oral Lasix in the ER. You are to return to the ER tomorrow, at your convenience, to receive a second unit of red blood cells and an additional 100 mg of oral Lasix. The IV was left in your arm. Keep it dry. - My Orders Last 24 Hours: My Active Orders 11/05/18 13:43 Orthostatic Vital Signs [RC] STAT 11/05/18 13:59 RED BLOOD CELLS LP [BBK] Routine 11/05/18 14:13 Transfuse PRBC [Transfuse Red Blood Cells] [COMM] Stat - Assessment/Plan Last 24 Hours: My Active Orders 11/05/18 13:43 Orthostatic Vital Signs [RC] STAT 11/05/18 13:59 RED BLOOD CELLS LP [BBK] Routine 11/05/18 14:13 Transfuse PRBC [Transfuse Red Blood Cells] [COMM] Stat
[2018-11-05] MEDS ORDERED: Furosemide 20 MG Tab PO ONE (15:01)
[2018-11-05] MEDS ORDERED: Furosemide 80 MG Tab PO ONE (15:02)
[2018-11-05] MEDS ORDERED: Sodium Chloride 0.9% 250 ML ONE (15:52)
[2018-11-06] MEDS ORDERED: Furosemide 80 MG Tab PO STA (10:40)
[2018-11-06] MEDS ORDERED: Sodium Chloride 0.9% 250 ML IV SCH (10:45)
[2018-11-06] MEDS ORDERED: Sodium Chloride 0.9% 250 ML ONE (10:47)
[2018-11-06 13:34] VITALS: BP 144/90
== END 2018-11-05 18:40 | disposition home or self-care (01) ==
LOC: JD.ED 12:57
DX: I13.2 Hypertensive heart and chronic kidney disease with heart failure and with stage 5 chronic kidney disease, or end stage renal disease (principal); I50.9 Heart failure, unspecified; E11.22 Type 2 diabetes mellitus with diabetic chronic kidney disease; N18.6 End stage renal disease; Z87.891 Personal history of nicotine dependence; Z79.899 Other long term (current) drug therapy; Z99.2 Dependence on renal dialysis; D50.0 Iron deficiency anemia secondary to blood loss (chronic)
CPT/HCPCS: 36415; 36430; 85014; 85018; 86850; 86900; 86901; 86922; 99284; A9270; P9016; 99283

== ENCOUNTER 2019-08-20 14:26 | Emergency (ER) | payer MEDICARE, OTHER ==
[2019-08-20] MEDS ORDERED: Sodium Chloride 0.9% 10 ML Syringe FLUSH PRN (14:57)
[2019-08-20] MEDS ORDERED: Sodium Chloride 0.9% 250 ML IV SCH (16:30)
--- NOTE | 2019-08-20 17:08 | EDM.PDOC ---
ED HPI GENERAL MEDICAL PROBLEM - General Chief Complaint: General Stated Complaint: NEED BLOOD TRANSFUSION Time Seen by Provider: 08/20/19 14:45 Source of Information: Reports: Patient History Limitations: Reports: No Limitations - History of Present Illness INITIAL COMMENTS - FREE TEXT/NARRATIVE: The patient presents for a blood transfusion. He is in renal failure on dailysis. He had dialysis yesterday and they did labs. They called him to come in for a transfusion because his Hgb was 5. He has been tired lately. He has no fever, chills, cough, chest pain, shortness of breath, nausea or vomiting. He has had a big work up to figure out why he is anemic and no real cause was found. He has had transfusions before. Onset: Gradual Duration: Day(s): Severity: Moderate Improves with: Reports: None Worsens with: Reports: None Associated Symptoms: Reports: No Other Symptoms - Related Data Allergies Allergy/AdvReac Type Severity Reaction Status Date / Time No Known Allergies Allergy Verified 08/20/19 14:44 Home Meds: Home Meds Zolpidem Tartrate [Ambien] 1 - 2 tab PO BEDTIME PRN 07/31/15 [History] Rosuvastatin Calcium [Crestor] 5 mg PO DAILY 02/05/16 [History] hydrOXYzine HCL [hydrOXYzine] 10 mg PO TID PRN 07/04/18 [History] Benzonatate 200 mg PO TID PRN 11/05/18 [History] Orphenadrine Citrate [Orphenadrine Citrate ER] 100 mg PO BID PRN 11/05/18 [ History] Sevelamer HCl [Renagel] 2,400 mg PO TIDMEALS 11/05/18 [History] dexAMETHasone [Dexamethasone] 40 mg PO WEEKLY 11/05/18 [History] Acetaminophen [Tylenol Extra Strength] 1,000 mg PO Q6HR PRN 12/17/18 [History] Lactulose [Enulose] 30 gm PO DAILY PRN 12/17/18 [History] Pantoprazole Sodium [Protonix] 40 mg PO BID 12/17/18 [History] Cholecalciferol (Vitamin D3) [Vitamin D3] 1,000 unit PO DAILY 08/20/19 [History] Cyanocobalamin (Vitamin B12) [Vitamin B12] 1 mg PO DAILY 08/20/19 [History] Metoprolol Succinate 25 mg PO BID 08/20/19 [History] Sodium Bicarbonate 650 mg PO DAILY 08/20/19 [History] dexAMETHasone [Dexamethasone] 08/20/19 [History] Past Medical History HEENT History: Reports: Impaired Vision Cardiovascular History: Reports: Heart Failure, High Cholesterol, Hypertension Other Cardiovascular History: enlarged heart Respiratory History: Reports: Other (See Below) Other Respiratory History: hx pneumonia Gastrointestinal History: Reports: Colon Polyp, GERD, GI Bleed Other Gastrointestinal History: hx c.diff Genitourinary History: Reports: BPH, Dialysis Other Genitourinary History: enlarged prostate Musculoskeletal History: Reports: Back Pain, Chronic, Osteoarthritis Other Musculoskeletal History: spinal stenosis Neurological History: Reports: CVA, Headaches, Chronic Endocrine/Metabolic History: Reports: Diabetes, Type II, Obesity/BMI 30+ Hematologic History: Reports: Anemia, Blood Transfusion(s) Immunologic History: Reports: SLE Oncologic (Cancer) History: Reports: Other (See Below) Other Oncologic History: myloma - Infectious Disease History Infectious Disease History: Reports: C-Difficile, Shingles Other Infectious Disease History: hx c. diff and shingles - Past Surgical History HEENT Surgical History: Reports: Oral Surgery Cardiovascular Surgical History: Reports: Vascular Surgery GI Surgical History: Reports: Cholecystectomy Social & Family History - Family History Family Medical History: Noncontributory Psychiatric: Reports: None Hematologic: Reports: None Immunologic: Reports: None Dermatologic: Reports: None Oncologic: Reports: None - Tobacco Use Smoking Status *Q: Former Smoker Used Tobacco, but Quit: Yes Month/Year Tobacco Last Used: 2012 - Caffeine Use Caffeine Use: Reports: None - Recreational Drug Use Recreational Drug Use: No - Living Situation & Occupation Living situation: Reports: , with Spouse, with Family (Daughter, 2 grandsons) Occupation: Retired ED ROS GENERAL - Review of Systems Review Of Systems: See Below Constitutional: Reports: Weakness HEENT: Reports: No Symptoms Respiratory: Reports: No Symptoms Cardiovascular: Reports: No Symptoms Endocrine: Reports: No Symptoms GI/Abdominal: Reports: No Symptoms : Reports: No Symptoms Musculoskeletal: Reports: No Symptoms ED EXAM, GENERAL - Physical Exam Exam: See Below Exam Limited By: No Limitations General Appearance: Alert, No Apparent Distress Ears: Normal External Exam Nose: Normal Inspection Head: Atraumatic, Normocephalic Neck: Normal Inspection Respiratory/Chest: No Respiratory Distress, Lungs Clear, Normal Breath Sounds Cardiovascular: Regular Rate, Rhythm, No Edema, No Murmur GI/Abdominal: Soft, Non-Tender, No Organomegaly, No Mass Back Exam: Normal Inspection Extremities: Normal Inspection Neurological: Alert, Oriented, No Motor/Sensory Deficits Course - Vital Signs Last Recorded V/S: Last Vital Signs Temp 98.0 F 08/20/19 17:02 Pulse 92 08/20/19 17:02 Resp 15 08/20/19 17:02 BP 120/68 08/20/19 17:02 Pulse Ox 98 08/20/19 17:02 - Orders/Labs/Meds Orders: Active Orders 24 hr Category Date Time Status Peripheral IV Care [RC] . DIRECTED Care 08/20/19 14:57 Active RED BLOOD CELLS LP [BBK] Stat Lab 08/20/19 15:14 Results TYPE AND SCREEN [BBK] Stat Lab 08/20/19 15:14 Results Sodium Chloride 0.9% [Normal Saline] 250 ml Med 08/20/19 16:30 Active IV ASDIRECTED Sodium Chloride 0.9% [Saline Flush] Med 08/20/19 14:57 Active 10 ml FLUSH ASDIRECTED PRN Peripheral IV Insertion Adult [OM.PC] Stat Oth 08/20/19 14:57 Ordered Transfuse RBC [Transfuse Red Blood Cells] [COMM] Stat Oth 08/20/19 14:57 Ordered Transfuse RBC [Transfuse Red Blood Cells] [COMM] Stat Oth 08/20/19 18:18 Ordered Medication Orders Sodium Chloride (Normal Saline) 250 mls @ 50 mls/hr IV ASDIRECTED AMANDA Last Admin: 08/20/19 16:32 Dose: 50 mls/hr Sodium Chloride (Saline Flush) 10 ml FLUSH ASDIRECTED PRN PRN Reason: Keep Vein Open Last Admin: 08/20/19 16:32 Dose: 10 ml Labs: Laboratory Tests 08/20/19 08/20/19 08/20/19 Range/Units 15:14 15:14 15:14 WBC 5.46 (4.23-9.07) K/mm3 RBC 1.41 L (4.63-6.08) M/mm3 Hgb 4.8 L* D (13.7-17.5) gm/dl Hct 15.4 L (40.1-51.0) % MCV 109.2 H D (79.0-92.2) fl MCH 34.0 H (25.7-32.2) pg MCHC 31.2 L (32.2-35.5) g/dl RDW Std Deviation 54.5 H (35.1-43.9) fL Plt Count 107 L (163-337) K/mm3 MPV 10.6 (9.4-12.3) fl Neut % (Auto) 87.8 H (34.0-67.9) % Lymph % (Auto) 4.8 L (21.8-53.1) % Twiggs % (Auto) 6.8 (5.3-12.2) % Eos % (Auto) 0.2 L (0.8-7.0) Baso % (Auto) 0.0 L (0.1-1.2) % Neut # (Auto) 4.80 (1.78-5.38) K/mm3 Lymph # (Auto) 0.26 L (1.32-3.57) K/mm3 Twiggs # (Auto) 0.37 (0.30-0.82) K/mm3 Eos # (Auto) 0.01 L (0.04-0.54) K/mm3 Baso # (Auto) 0.00 L (0.01-0.08) K/mm3 Manual Slide Review Abnormal smear Sodium 135 L (136-145) mEq/L Potassium 4.2 (3.5-5.1) mEq/L Chloride 96 L (98-107) mEq/L Carbon Dioxide 24 (21-32) mEq/L Anion Gap 19.2 H (5-15) BUN 38 H (7-18) mg/dL Creatinine 5.0 H D (0.7-1.3) mg/dL Est Cr Clr Drug Dosing 14.40 mL/min Estimated GFR (MDRD) 12 (>60) mL/min BUN/Creatinine Ratio 7.6 L (14-18) Glucose 128 H (80-115) mg/dL Calcium 7.1 L D (8.5-10.1) mg/dL Total Bilirubin 0.5 (0.2-1.0) mg/dL AST 17 (15-37) U/L ALT 26 (16-63) U/L Alkaline Phosphatase 135 H (46-116) U/L Total Protein 6.1 L (6.4-8.2) g/dl Albumin 3.1 L (3.4-5.0) g/dl Globulin 3.0 gm/dL Albumin/Globulin Ratio 1.0 (1-2) Blood Type O POSITIVE Gel Antibody Screen Negative Crossmatch See Detail Meds: Medications Generic Name Dose Route Start Last Admin Trade Name Freq PRN Reason Stop Dose Admin Sodium Chloride 250 mls @ 50 mls/hr 08/20/19 16:30 08/20/19 16:32 Normal Saline IV 50 mls/hr ASDIRECTED AMANDA Administration Sodium Chloride 10 ml 08/20/19 14:57 08/20/19 16:32 Saline Flush FLUSH 10 ml ASDIRECTED PRN Administration Keep Vein Open - Re-Assessments/Exams Free Text/Narrative Re-Assessment/Exam: 08/20/19 17:09 I ordered an IV, labs, and 2 units of PRBCs. His Hgb is low at 4.8. His platelets are low at 107. His Na is 135. His anion gap is elevated at 19.2. His creatinine is elevated at 5. His calcium is low at 7.1. 08/20/19 18:41 He will need 2 more units of PRBCs to bring him up over 8. I have written orders. He will be discharged after that. Departure - Departure Time of Disposition: 18:45 Disposition: Home, Self-Care 01 Condition: Good Clinical Impression: ESRD (end stage renal disease) on dialysis Anemia Qualifiers: Iron deficiency anemia type: chronic blood loss Qualified Code(s): D50.0 - Iron deficiency anemia secondary to blood loss (chronic) - Discharge Information *PRESCRIPTION DRUG MONITORING PROGRAM REVIEWED*: Not Applicable *COPY OF PRESCRIPTION DRUG MONITORING REPORT IN PATIENT OTTONIEL: Not Applicable Referrals: Jojo Bazan [facility]IN[facility] [Primary Care Provider] - 1 Week Forms: ED Department Discharge Additional Instructions: Take your medications as prescribed. Follow up with your provider. Please return if you are worse. Sepsis Event Note - Evaluation Sepsis Screening Result: No Definite Risk - Focused Exam Vital Signs: Vital Signs Temp Temp Pulse Resp BP Pulse Ox 08/20/19 17:02 98.0 F 92 15 120/68 98 08/20/19 16:41 97.6 F 89 15 119/69 99 08/20/19 14:44 97.8 F 100 16 128/75 97 Date Exam was Performed: 08/20/19 Time Exam was Performed: 18:41 - My Orders Last 24 Hours: My Active Orders 08/20/19 14:57 Peripheral IV Care [RC] . DIRECTED Sodium Chloride 0.9% [Saline Flush] 10 ml FLUSH ASDIRECTED PRN Peripheral IV Insertion Adult [OM.PC] Stat Transfuse RBC [Transfuse Red Blood Cells] [COMM] Stat 08/20/19 15:14 RED BLOOD CELLS LP [BBK] Stat TYPE AND SCREEN [BBK] Stat 08/20/19 16:30 Sodium Chloride 0.9% [Normal Saline] 250 ml IV ASDIRECTED 08/20/19 18:18 Transfuse RBC [Transfuse Red Blood Cells] [COMM] Stat - Assessment/Plan Last 24 Hours: My Active Orders 08/20/19 14:57 Peripheral IV Care [RC] . DIRECTED Sodium Chloride 0.9% [Saline Flush] 10 ml FLUSH ASDIRECTED PRN Peripheral IV Insertion Adult [OM.PC] Stat Transfuse RBC [Transfuse Red Blood Cells] [COMM] Stat 08/20/19 15:14 RED BLOOD CELLS LP [BBK] Stat TYPE AND SCREEN [BBK] Stat 08/20/19 16:30 Sodium Chloride 0.9% [Normal Saline] 250 ml IV ASDIRECTED 08/20/19 18:18 Transfuse RBC [Transfuse Red Blood Cells] [COMM] Stat
[2019-08-20 22:57] VITALS: PULSE 91
[2019-08-20 23:11] VITALS: BP 140/80
== END 2019-08-21 00:40 | disposition home or self-care (01) ==
LOC: JD.ED 14:26
DX: D50.0 Iron deficiency anemia secondary to blood loss (chronic) (principal); I13.2 Hypertensive heart and chronic kidney disease with heart failure and with stage 5 chronic kidney disease, or end stage renal disease; E11.22 Type 2 diabetes mellitus with diabetic chronic kidney disease; N18.6 End stage renal disease; I50.9 Heart failure, unspecified; Z99.2 Dependence on renal dialysis; E78.00 Pure hypercholesterolemia, unspecified; K21.9 Gastro-esophageal reflux disease without esophagitis; M19.90 Unspecified osteoarthritis, unspecified site; Z86.73 Personal history of transient ischemic attack (TIA), and cerebral infarction without residual deficits; E66.9 Obesity, unspecified; Z68.24 Body mass index [BMI] 24.0-24.9, adult; Z87.891 Personal history of nicotine dependence; Z79.899 Other long term (current) drug therapy
CPT/HCPCS: 36415; 36430; 80053; 85025; 86850; 86900; 86901; 86922; 96360; 96361; 99284; J7050; P9016; 99283

== ENCOUNTER 2019-10-30 07:39 | Emergency (ER) | payer MEDICARE, OTHER ==
--- NOTE | 2019-10-30 08:14 | EDM.PDOC ---
ED HPI GENERAL MEDICAL PROBLEM - General Chief Complaint: General Stated Complaint: LOW HEMOGLOBIN Time Seen by Provider: 10/30/19 08:00 Source of Information: Reports: Patient History Limitations: Reports: No Limitations - History of Present Illness INITIAL COMMENTS - FREE TEXT/NARRATIVE: 69-year-old male of [place] ancestry presents to the ED after completing approximately 45 minutes of his hemodialysis treatment this morning. Ports he could not tolerate any further dialysis due to shortness of breath dizziness and lightheadedness and generalized weakness. Patient has a history of multiple myeloma he believes diagnosed in 2011. He has been receiving intermittent blood transfusions for many years. Notes to the ED for blood transfusion after hemoglobin was found to be 4.5 this morning. He is symptomatic in terms of lightheaded and dizzy with standing. Short of breath on minimal exertion. Diffuse leg weakness as well. Denies any vomiting or hematemesis and has not noticed any blood in his stool. Onset: Gradual Duration: Chronic Location: Reports: Generalized (Lysed weakness) Quality: Reports: Other (Neurolysed weakness with associated lightheadedness, dizziness) Severity: Moderate Improves with: Reports: Rest Worsens with: Reports: Other Context: Reports: Other (Has known multiple myeloma and is a hemodialysis patient). Denies: Activity, Exercise, Lifting, Sick Contact, Trauma Associated Symptoms: Reports: Loss of Appetite, Malaise, Shortness of Breath, Weakness (Neurolysed weakness). 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) - Related Data Allergies Allergy/AdvReac Type Severity Reaction Status Date / Time No Known Allergies Allergy Verified 10/30/19 07:56 Home Meds: Home Meds Zolpidem Tartrate [Ambien] 1 - 2 tab PO BEDTIME PRN 07/31/15 [History] Rosuvastatin Calcium [Crestor] 5 mg PO DAILY 02/05/16 [History] hydrOXYzine HCL [hydrOXYzine] 10 mg PO TID PRN 07/04/18 [History] Benzonatate 200 mg PO TID PRN 11/05/18 [History] Orphenadrine Citrate [Orphenadrine Citrate ER] 100 mg PO BID PRN 11/05/18 [ History] Sevelamer HCl [Renagel] 2,400 mg PO TIDMEALS 11/05/18 [History] dexAMETHasone [Dexamethasone] 40 mg PO WEEKLY 11/05/18 [History] Acetaminophen [Tylenol Extra Strength] 1,000 mg PO Q6HR PRN 12/17/18 [History] Lactulose [Enulose] 30 gm PO DAILY PRN 12/17/18 [History] Pantoprazole Sodium [Protonix] 40 mg PO BID 12/17/18 [History] Cholecalciferol (Vitamin D3) [Vitamin D3] 1,000 unit PO DAILY 08/20/19 [History] Cyanocobalamin (Vitamin B12) [Vitamin B12] 1 mg PO DAILY 08/20/19 [History] Metoprolol Succinate 25 mg PO BID 08/20/19 [History] Sodium Bicarbonate 650 mg PO DAILY 08/20/19 [History] dexAMETHasone [Dexamethasone] 08/20/19 [History] Past Medical History HEENT History: Reports: Cataract, Impaired Vision Cardiovascular History: Reports: Heart Failure, High Cholesterol, Hypertension Other Cardiovascular History: enlarged heart Respiratory History: Reports: Other (See Below) Other Respiratory History: hx pneumonia Gastrointestinal History: Reports: Colon Polyp, GERD, GI Bleed Other Gastrointestinal History: hx c.diff Genitourinary History: Reports: BPH, Dialysis Other Genitourinary History: enlarged prostate Musculoskeletal History: Reports: Back Pain, Chronic, Osteoarthritis Other Musculoskeletal History: spinal stenosis Neurological History: Reports: CVA, Headaches, Chronic Endocrine/Metabolic History: Reports: Diabetes, Type II Hematologic History: Reports: Anemia, Blood Transfusion(s) Immunologic History: Reports: SLE Oncologic (Cancer) History: Reports: Other (See Below) Other Oncologic History: myloma - Infectious Disease History Infectious Disease History: Reports: C-Difficile, Shingles Other Infectious Disease History: hx c. diff and shingles - Past Surgical History HEENT Surgical History: Reports: Oral Surgery GI Surgical History: Reports: Cholecystectomy Social & Family History - Family History Family Medical History: Noncontributory Psychiatric: Reports: None Hematologic: Reports: None Immunologic: Reports: None Dermatologic: Reports: None Oncologic: Reports: None - Tobacco Use Smoking Status *Q: Former Smoker Used Tobacco, but Quit: Yes Month/Year Tobacco Last Used: 12 years ago - Caffeine Use Caffeine Use: Reports: None - Recreational Drug Use Recreational Drug Use: No - Living Situation & Occupation Living situation: Reports: , with Spouse, with Family (Daughter, 2 grandsons) Occupation: Retired ED ROS GENERAL - Review of Systems Review Of Systems: See Below Constitutional: Reports: Malaise, Weakness, Fatigue, Decreased Appetite. Denies : Fever, Chills HEENT: Reports: No Symptoms, Other (Is a birthmark involving his right upper eyelid and forehead) Respiratory: Reports: Shortness of Breath. Denies: Wheezing, Pleuritic Chest Pain (Actually on minimal exertion), Cough, Sputum, Hemoptysis, Other Cardiovascular: Reports: Dyspnea on Exertion, Lightheadedness. Denies: Blood Pressure Problem, Claudication, Edema, Orthopnea Endocrine: Reports: Fatigue GI/Abdominal: Reports: Constipation (Occasional problems with constipation), Decreased Appetite. Denies: Nausea, Vomiting : Reports: Other (She reports she still makes greater than a cup of urine daily.) Musculoskeletal: Reports: Back Pain Skin: Reports: Bruising Neurological: Reports: Dizziness, Difficulty Walking, Weakness. Denies: Confusion, Headache, Numbness, Syncope, Tingling Psychiatric: Reports: No Symptoms Hematologic/Lymphatic: Reports: Anemia Immunologic: Reports: No Symptoms ED EXAM, GENERAL - Physical Exam Exam: See Below Exam Limited By: No Limitations General Appearance: Alert, WD/WN, No Apparent Distress, Other (Temperature is 36.8 with a heart rate of 90 and sinus. 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 No: Lymphadenopathy (L), Lymphadenopathy (R) Respiratory/Chest: No Respiratory Distress, Lungs Clear, Normal Breath Sounds, No Accessory Muscle Use Cardiovascular: Normal Peripheral Pulses, Regular Rate, Rhythm, No Edema, No Gallop, No Murmur, No Rub Peripheral Pulses: 1+: Posterior Tibial (L), Posterior Tibial (R), Dorsalis Pedis (L), Dorsalis Pedis (R), 2+: Carotid (L), Carotid (R) GI/Abdominal: Normal Bowel Sounds, Soft, Non-Tender, No Organomegaly, No Abnormal Bruit, No Mass, Pelvis Stable Back Exam: Normal Inspection, Full Range of Motion. No: CVA Tenderness (L), CVA Tenderness (R) Extremities: Non-Tender, Other (AV fistula left antecubital fossa) Neurological: Alert, Oriented ( lower arm area), CN II-XII Intact, Normal Cognition Psychiatric: Normal Affect, Normal Mood Skin Exam: Warm, Dry, Intact, No Rash, Pallor (Pallor) Course - Vital Signs Last Recorded V/S: Last Vital Signs Temp 36.8 C 10/30/19 14:03 Pulse 96 10/30/19 14:03 Resp 15 10/30/19 10:00 BP 136/90 10/30/19 14:03 Pulse Ox 99 10/30/19 07:57 - Orders/Labs/Meds Orders: Active Orders 24 hr Category Date Time Status Sodium Chloride 0.9% [Normal Saline] 250 ml Med 10/30/19 08:45 Active IV ASDIRECTED Transfuse PRBC [Transfuse Red Blood Cells] [COMM] Stat Oth 10/30/19 08:39 Ordered Medication Orders Sodium Chloride (Normal Saline) 250 mls @ 50 mls/hr IV ASDIRECTED AMANDA Last Admin: 10/30/19 09:19 Dose: 50 mls/hr Labs: Laboratory Tests 10/30/19 Range/Units 07:08 Blood Type O POSITIVE Gel Antibody Screen Negative Crossmatch See Detail Meds: Medications Generic Name Dose Route Start Last Admin Trade Name Freq PRN Reason Stop Dose Admin Sodium Chloride 250 mls @ 50 mls/hr 10/30/19 08:45 10/30/19 09:19 Normal Saline IV 50 mls/hr ASDIRECTED AMANDA Administration Discontinued Medications Generic Name Dose Route Start Last Admin Trade Name Freq PRN Reason Stop Dose Admin Furosemide 80 mg 10/30/19 09:29 10/30/19 09:59 Lasix IVPUSH 10/30/19 09:30 80 mg NOW ONE Administration Sodium Chloride Confirm 10/30/19 08:35 10/30/19 09:19 Normal Saline Administered 10/30/19 08:36 Not Given Dose 250 mls @ as directed .ROUTE .STK-MED ONE - Radiology Interpretation Free Text/Narrative:: 69-year-old male presents to the ED after completing 45 minutes of his dialysis run this morning. He states he is just too weak to continue. Patient has a history of multiple myeloma dating back to 2011. He has received numerous blood transfusions along the way. Last transfusion was approximately 3 months ago. His hemoglobin this morning was down to 4.5. He therefore attends the ED primarily for blood transfusion. He will be packed for 3 units of packed red blood cells to achieve a hemoglobin in the sevens. Ms. he may well become more volume overloaded and require further dialysis today. - Re-Assessments/Exams Free Text/Narrative Re-Assessment/Exam: 10/30/19 09:30 dialysis unit states that did not have time to further dialyze him today. They did offer dialysis tomorrow but the patient has other plans. Therefore going to try and give him Lasix 80 mg IV after the second unit of packed cells has been transfused in the hopes that this may provide some diuresis and prevent volume overload. 10/30/19 12:30 patient is currently receiving his third unit of packed red cells and has had not had any problems. Lungs sound clear. 10/30/19 14:00: Patient has completed 3 units of packed red blood cells without any problems. He feels better. Lungs are clear to auscultation percussion with no evidence of volume overload at this time. He will therefore be discharged to home. He should have a hemoglobin checked in approximately a week 's time. Is due for dialysis next Saturday. Departure - Departure Time of Disposition: 14:00 Disposition: Home, Self-Care 01 Condition: Fair Clinical Impression: Anemia, chronic disease, Renal failure associated with renal vascular disease Multiple myeloma Qualifiers: Multiple myeloma remission status: not in remission Qualified Code(s): C90.00 - Multiple myeloma not having achieved remission - Discharge Information *PRESCRIPTION DRUG MONITORING PROGRAM REVIEWED*: Not Applicable *COPY OF PRESCRIPTION DRUG MONITORING REPORT IN PATIENT OTTONIEL: Not Applicable Instructions: Anemia Referrals: Jojo Bazan [employer] [employer] [Primary Care Provider] - Forms: ED Department Discharge Additional Instructions: Evaluation in the emergency room today in regards to development of severe anemia with hemoglobin reportedly 4.5 today. This is a recurrent problem for you due to combination of multiple myeloma and renal failure. You therefore received 3 units of packed red blood cells intravenously today to bring her hemoglobin up into the sevens. It should be checked in about a week's time. No all other medications as before. Sepsis Event Note - Evaluation Sepsis Screening Result: No Definite Risk - Focused Exam Vital Signs: Vital Signs Temp Temp Pulse Resp BP Pulse Ox 10/30/19 14:03 36.8 C 96 136/90 10/30/19 12:42 36.7 C 95 132/82 10/30/19 12:27 36.8 C 95 132/82 10/30/19 12:12 36.6 C 92 133/77 10/30/19 12:02 36.8 C 93 133/77 10/30/19 10:43 36.8 C 86 124/73 10/30/19 10:28 36.8 C 93 118/64 10/30/19 10:13 36.7 C 73 126/72 10/30/19 10:09 36.7 C 69 126/72 10/30/19 10:00 36.5 C 68 15 126/72 10/30/19 09:19 36.8 C 86 124/60 10/30/19 09:04 36.8 C 72 12 120/64 10/30/19 08:50 36.8 C 72 14 116/55 L 10/30/19 08:40 36.8 C 70 14 115/55 L 10/30/19 07:57 36.8 C 90 13 124/64 99 Date Exam was Performed: 10/30/19 Time Exam was Performed: 14:11 - My Orders Last 24 Hours: My Active Orders 10/30/19 08:39 Transfuse PRBC [Transfuse Red Blood Cells] [COMM] Stat 10/30/19 08:45 Sodium Chloride 0.9% [Normal Saline] 250 ml IV ASDIRECTED - Assessment/Plan Last 24 Hours: My Active Orders 10/30/19 08:39 Transfuse PRBC [Transfuse Red Blood Cells] [COMM] Stat 10/30/19 08:45 Sodium Chloride 0.9% [Normal Saline] 250 ml IV ASDIRECTED
[2019-10-30] MEDS ORDERED: Sodium Chloride 0.9% 250 ML ONE (08:35)
[2019-10-30] MEDS ORDERED: Sodium Chloride 0.9% 250 ML IV SCH (08:45)
[2019-10-30] MEDS ORDERED: Furosemide 40 MG/4 ML VIAL IVPUSH ONE (09:29)
[2019-10-30 14:04] VITALS: BP 136/90; PULSE 96
== END 2019-10-30 14:13 | disposition home or self-care (01) ==
LOC: JD.ED 07:39
DX: I13.0 Hypertensive heart and chronic kidney disease with heart failure and stage 1 through stage 4 chronic kidney disease, or unspecified chronic kidney disease (principal); I50.9 Heart failure, unspecified; E11.22 Type 2 diabetes mellitus with diabetic chronic kidney disease; N18.9 Chronic kidney disease, unspecified; D63.1 Anemia in chronic kidney disease; E78.00 Pure hypercholesterolemia, unspecified; C90.00 Multiple myeloma not having achieved remission; M32.9 Systemic lupus erythematosus, unspecified; K21.9 Gastro-esophageal reflux disease without esophagitis; Z79.899 Other long term (current) drug therapy; Z99.2 Dependence on renal dialysis; Z86.73 Personal history of transient ischemic attack (TIA), and cerebral infarction without residual deficits; Z87.891 Personal history of nicotine dependence
CPT/HCPCS: 36415; 36430; 86850; 86900; 86901; 86922; 96361; 96374; 99284; J1940; J7050; P9016

== ENCOUNTER 2019-11-13 10:36 | Emergency (ER) | payer MEDICARE, OTHER ==
--- NOTE | 2019-11-13 12:52 | EDM.PDOC ---
ED HPI GENERAL MEDICAL PROBLEM - General Chief Complaint: General Stated Complaint: NEEDS TRANSFUSION Time Seen by Provider: 11/13/19 11:02 Source of Information: Reports: Patient, RN Notes Reviewed - History of Present Illness INITIAL COMMENTS - FREE TEXT/NARRATIVE: 69 year old male sent over from dialysis unit for eval and treatment of low hgb. He does have hx of anemia. Was found to have a hgb of 4.5 October 29, transfused 3 units PRBC's at this ED. Apparently labs drawn today at [facility] showed hgb of around 5.4. Patient has noted no rectal bleeding although he has had some dark stools. No chest pain, difficulty breathing or unusual dizziness. He states he last had colonoscopy and further workup about 18 months ago for similar sx and anemia at that time. No GI source of bleeding found at that time. There has been no nausea or vomiting. Eating and drinking without difficulty. - Related Data Allergies Allergy/AdvReac Type Severity Reaction Status Date / Time No Known Allergies Allergy Verified 11/13/19 10:49 Home Meds: Home Meds Zolpidem Tartrate [Ambien] 1 - 2 tab PO BEDTIME PRN 07/31/15 [History] Rosuvastatin Calcium [Crestor] 5 mg PO DAILY 02/05/16 [History] hydrOXYzine HCL [hydrOXYzine] 10 mg PO TID PRN 07/04/18 [History] Benzonatate 200 mg PO TID PRN 11/05/18 [History] Orphenadrine Citrate [Orphenadrine Citrate ER] 100 mg PO BID PRN 11/05/18 [ History] Sevelamer HCl [Renagel] 2,400 mg PO TIDMEALS 11/05/18 [History] dexAMETHasone [Dexamethasone] 40 mg PO WEEKLY 11/05/18 [History] Acetaminophen [Tylenol Extra Strength] 1,000 mg PO Q6HR PRN 12/17/18 [History] Lactulose [Enulose] 30 gm PO DAILY PRN 12/17/18 [History] Pantoprazole Sodium [Protonix] 40 mg PO BID 12/17/18 [History] Cholecalciferol (Vitamin D3) [Vitamin D3] 1,000 unit PO DAILY 08/20/19 [History] Cyanocobalamin (Vitamin B12) [Vitamin B12] 1 mg PO DAILY 08/20/19 [History] Metoprolol Succinate 25 mg PO BID 08/20/19 [History] Sodium Bicarbonate 650 mg PO DAILY 08/20/19 [History] dexAMETHasone [Dexamethasone] 08/20/19 [History] Past Medical History HEENT History: Reports: Cataract, Impaired Vision Cardiovascular History: Reports: Heart Failure, High Cholesterol, Hypertension Other Cardiovascular History: enlarged heart Respiratory History: Reports: Other (See Below) Other Respiratory History: hx pneumonia Gastrointestinal History: Reports: Colon Polyp, GERD, GI Bleed Other Gastrointestinal History: hx c.diff Genitourinary History: Reports: BPH, Dialysis Other Genitourinary History: enlarged prostate Musculoskeletal History: Reports: Back Pain, Chronic, Osteoarthritis Other Musculoskeletal History: spinal stenosis Neurological History: Reports: CVA, Headaches, Chronic Endocrine/Metabolic History: Reports: Diabetes, Type II Hematologic History: Reports: Anemia, Blood Transfusion(s) Immunologic History: Reports: SLE Oncologic (Cancer) History: Reports: Other (See Below) Other Oncologic History: myloma - Infectious Disease History Infectious Disease History: Reports: C-Difficile, Shingles Other Infectious Disease History: hx c. diff and shingles - Past Surgical History HEENT Surgical History: Reports: Oral Surgery GI Surgical History: Reports: Cholecystectomy Social & Family History - Family History Family Medical History: Noncontributory Psychiatric: Reports: None Hematologic: Reports: None Immunologic: Reports: None Dermatologic: Reports: None Oncologic: Reports: None - Tobacco Use Used Tobacco, but Quit: Yes Month/Year Tobacco Last Used: 2007 - Caffeine Use Caffeine Use: Reports: Coffee - Recreational Drug Use Recreational Drug Use: No - Living Situation & Occupation Living situation: Reports: , with Spouse, with Family (Daughter, 2 grandsons) Occupation: Retired ED ROS GENERAL - Review of Systems Review Of Systems: See Below HEENT: Reports: No Symptoms Respiratory: Denies: Shortness of Breath Cardiovascular: Denies: Chest Pain GI/Abdominal: Denies: Abdominal Pain, Nausea, Vomiting Musculoskeletal: Reports: No Symptoms Skin: Reports: No Symptoms Neurological: Reports: No Symptoms. Denies: Difficulty Walking, Weakness, Change in Speech ED EXAM, GENERAL - Physical Exam Exam: See Below General Appearance: Alert, No Apparent Distress Eye Exam: Bilateral Eye: PERRL Throat/Mouth: Normal Inspection Head: Atraumatic. No: Facial Swelling Neck: Supple Respiratory/Chest: No Respiratory Distress, Lungs Clear, Normal Breath Sounds Cardiovascular: Regular Rate, Rhythm GI/Abdominal: Soft, Non-Tender, Other (small amt of brn stool, mild to moderately heme pos. ) Rectal (Males) Exam: Other (trace brn stool, mild to moderately heme positive) Extremities: Normal Inspection Neurological: Alert, Oriented, No Motor/Sensory Deficits Skin Exam: Warm, Dry, Normal Color Course - Vital Signs Last Recorded V/S: Last Vital Signs Temp 98.3 F 11/13/19 18:04 Pulse 82 11/13/19 18:04 Resp 21 H 11/13/19 18:04 BP 123/66 11/13/19 18:04 Pulse Ox 96 11/13/19 16:32 Orthostatic Blood Pressure [ 128/58 Standing] Orthostatic Blood Pressure [ 121/57 Supine] - Orders/Labs/Meds Orders: Active Orders 24 hr Category Date Time Status Transfuse PRBC [Transfuse Red Blood Cells] [COMM] Stat Oth 11/13/19 13:02 Ordered Labs: Laboratory Tests 11/13/19 11/13/19 11/13/19 Range/Units 11:21 11:21 11:21 WBC 2.56 L (4.23-9.07) K/mm3 RBC 1.66 L (4.63-6.08) M/mm3 Hgb 5.6 L* (13.7-17.5) gm/dl Hct 19.1 L (40.1-51.0) % MCV 115.1 H D (79.0-92.2) fl MCH 33.7 H (25.7-32.2) pg MCHC 29.3 L (32.2-35.5) g/dl RDW Std Deviation 78.5 H (35.1-43.9) fL Plt Count 177 (163-337) K/mm3 MPV 10.1 (9.4-12.3) fl Neut % (Auto) 57.4 (34.0-67.9) % Lymph % (Auto) 16.8 L (21.8-53.1) % [place] % (Auto) 20.3 H (5.3-12.2) % Eos % (Auto) 3.1 (0.8-7.0) Baso % (Auto) 1.6 H (0.1-1.2) % Neut # (Auto) 1.47 L (1.78-5.38) K/mm3 Lymph # (Auto) 0.43 L (1.32-3.57) K/mm3 [place] # (Auto) 0.52 (0.30-0.82) K/mm3 Eos # (Auto) 0.08 (0.04-0.54) K/mm3 Baso # (Auto) 0.04 (0.01-0.08) K/mm3 Manual Slide Review Abnormal smear Sodium 141 (136-145) mEq/L Potassium 3.1 L (3.5-5.1) mEq/L Chloride 102 (98-107) mEq/L Carbon Dioxide 32 (21-32) mEq/L Anion Gap 10.1 (5-15) BUN 15 (7-18) mg/dL Creatinine 2.6 H D (0.7-1.3) mg/dL Est Cr Clr Drug Dosing TNP Estimated GFR (MDRD) 25 (>60) mL/min BUN/Creatinine Ratio 5.8 L (14-18) Glucose 86 (80-115) mg/dL Calcium 8.4 L (8.5-10.1) mg/dL Total Bilirubin 0.6 (0.2-1.0) mg/dL AST 10 L (15-37) U/L ALT 16 (16-63) U/L Alkaline Phosphatase 68 (46-116) U/L Total Protein 6.2 L (6.4-8.2) g/dl Albumin 3.1 L (3.4-5.0) g/dl Globulin 3.1 gm/dL Albumin/Globulin Ratio 1.0 (1-2) Blood Type O POSITIVE Gel Antibody Screen Negative Crossmatch See Detail Meds: Medications Discontinued Medications Generic Name Dose Route Start Last Admin Trade Name Freq PRN Reason Stop Dose Admin Sodium Chloride 250 mls @ 25 mls/hr 11/13/19 13:15 11/13/19 14:03 Normal Saline IV 25 mls/hr ASDIRECTED AMANDA Administration - Re-Assessments/Exams Free Text/Narrative Re-Assessment/Exam: 11/13/19 12:45. Discussed with Dr Bello, rehab consultant for Dr Hunt, Automation Engineer , [facility]. He agrees that since patient is stable, asymptomatic, no orthostatic change, that he should be given 2 units PRBC's and work up can be continued on an outpatient basis. 11/13/19 17:52. I tried to contact Dr Hunt's nurse at about 15:00, no answer at clinic, she has not called back. Will plan to have patient follow up with Gege Bazan this next Saturday or as soon as possible early next week for recheck and to arrange further evaluation as needed and as appropriate. 11/14/19 07:24. pt was given 2 units PRBC's, tolerated that well. Vitals remained stable. Discharge instr. as documented. Departure - Departure Time of Disposition: 18:30 Disposition: Home, Self-Care 01 Condition: Fair Clinical Impression: Heme + stool Anemia Qualifiers: Iron deficiency anemia type: chronic blood loss Qualified Code(s): D50.0 - Iron deficiency anemia secondary to blood loss (chronic) - Discharge Information Instructions: Anemia Referrals: Jojo Bazan, [employer] [Primary Care Provider] - Forms: ED Department Discharge Additional Instructions: Continue current medications as prescribed. See Jojo Bazan at clinic this next Saturday or next available appointment. Call [phone] for appointment this next Saturday AM. Continue dialysis as planned. Return to ED as needed. Sepsis Event Note - Evaluation Sepsis Screening Result: No Definite Risk - Focused Exam Date Exam was Performed: 11/14/19 Time Exam was Performed: 07:24 - My Orders Last 24 Hours: My Active Orders 11/13/19 13:02 Transfuse PRBC [Transfuse Red Blood Cells] [COMM] Stat - Assessment/Plan Last 24 Hours: My Active Orders 11/13/19 13:02 Transfuse PRBC [Transfuse Red Blood Cells] [COMM] Stat
[2019-11-13] MEDS ORDERED: Sodium Chloride 0.9% 250 ML IV SCH (13:15)
[2019-11-13 18:05] VITALS: BP 123/66; PULSE 82
== END 2019-11-13 18:30 | disposition home or self-care (01) ==
LOC: JD.ED 10:36
DX: D50.0 Iron deficiency anemia secondary to blood loss (chronic) (principal); I11.0 Hypertensive heart disease with heart failure; I50.9 Heart failure, unspecified; E78.00 Pure hypercholesterolemia, unspecified; K21.9 Gastro-esophageal reflux disease without esophagitis; E11.9 Type 2 diabetes mellitus without complications; M32.9 Systemic lupus erythematosus, unspecified; Z79.899 Other long term (current) drug therapy; Z99.2 Dependence on renal dialysis; Z86.73 Personal history of transient ischemic attack (TIA), and cerebral infarction without residual deficits; Z87.891 Personal history of nicotine dependence; K92.1 Melena
CPT/HCPCS: 36415; 36430; 80053; 85025; 86850; 86900; 86901; 86922; 99284; J7050; P9016; 99283

== ENCOUNTER 2019-12-07 10:41 | Emergency (ER) | payer MEDICARE, OTHER ==
[2019-12-07] MEDS ORDERED: Sodium Chloride 0.9% 10 ML Syringe FLUSH PRN (11:10)
--- NOTE | 2019-12-07 11:59 | EDM.PDOC ---
ED HPI GENERAL MEDICAL PROBLEM - General Chief Complaint: Abdominal Pain Stated Complaint: HIGH BLOOD PRESSURE Time Seen by Provider: 12/07/19 10:53 Source of Information: Reports: Patient History Limitations: Reports: No Limitations - History of Present Illness INITIAL COMMENTS - FREE TEXT/NARRATIVE: The patient presents from dialysis with tachycardia. The patient just finished. They noticed his heart rate was elevated. He says he does feel a little lightheaded and short of breath kind of like when he is low on blood. He had a transfusion here in October. He has multiple myoloma and they think that may be why he is anemic. He also has the renal failure which makes it worse. He had an upper GI and colonoscopy and all that looks good. He has no fever, chills, cough, chest pain, abdominal pain, nausea or vomiting. Onset: Gradual Duration: Day(s): Improves with: Reports: None Worsens with: Reports: None Associated Symptoms: Reports: Shortness of Breath. Denies: Chest Pain, Cough, Fever/Chills, Headaches, Nausea/Vomiting Left Knee Pain Score (Numeric/FACES): 9 - Related Data Allergies Allergy/AdvReac Type Severity Reaction Status Date / Time No Known Allergies Allergy Verified 12/07/19 10:55 Home Meds: Home Meds Zolpidem Tartrate [Ambien] 1 - 2 tab PO BEDTIME PRN 07/31/15 [History] Rosuvastatin Calcium [Crestor] 5 mg PO DAILY 02/05/16 [History] hydrOXYzine HCL [hydrOXYzine] 10 mg PO TID PRN 07/04/18 [History] Orphenadrine Citrate [Orphenadrine Citrate ER] 100 mg PO BID PRN 11/05/18 [ History] Sevelamer HCl [Renagel] 2,400 mg PO TIDMEALS 11/05/18 [History] dexAMETHasone [Dexamethasone] 40 mg PO WEEKLY 11/05/18 [History] Acetaminophen [Tylenol Extra Strength] 1,000 mg PO Q6HR PRN 12/17/18 [History] Lactulose [Enulose] 30 gm PO DAILY PRN 12/17/18 [History] Pantoprazole Sodium [Protonix] 40 mg PO BID 12/17/18 [History] Cyanocobalamin (Vitamin B12) [Vitamin B12] 1 mg PO DAILY 08/20/19 [History] Metoprolol Succinate 25 mg PO BID 08/20/19 [History] Sodium Bicarbonate 650 mg PO DAILY 08/20/19 [History] Pomalidomide [Pomalyst] 2 mg PO DAILY 12/07/19 [History] Past Medical History HEENT History: Reports: Cataract, Impaired Vision Cardiovascular History: Reports: Heart Failure, High Cholesterol, Hypertension Other Cardiovascular History: enlarged heart Respiratory History: Reports: Other (See Below) Other Respiratory History: hx pneumonia Gastrointestinal History: Reports: Colon Polyp, GERD, GI Bleed Other Gastrointestinal History: hx c.diff Genitourinary History: Reports: BPH, Dialysis Other Genitourinary History: enlarged prostate Musculoskeletal History: Reports: Back Pain, Chronic, Osteoarthritis Other Musculoskeletal History: spinal stenosis Neurological History: Reports: CVA, Headaches, Chronic Endocrine/Metabolic History: Reports: Diabetes, Type II Hematologic History: Reports: Anemia, Blood Transfusion(s) Immunologic History: Reports: SLE Oncologic (Cancer) History: Reports: Other (See Below) Other Oncologic History: myloma - Infectious Disease History Infectious Disease History: Reports: C-Difficile, Shingles Other Infectious Disease History: hx c. diff and shingles - Past Surgical History HEENT Surgical History: Reports: Oral Surgery GI Surgical History: Reports: Cholecystectomy Social & Family History - Family History Family Medical History: Noncontributory Psychiatric: Reports: None Hematologic: Reports: None Immunologic: Reports: None Dermatologic: Reports: None Oncologic: Reports: None - Tobacco Use Smoking Status *Q: Former Smoker Years of Tobacco use: 30 Used Tobacco, but Quit: Yes Month/Year Tobacco Last Used: 10/2007 - Caffeine Use Caffeine Use: Reports: Coffee - Recreational Drug Use Recreational Drug Use: No - Living Situation & Occupation Living situation: Reports: , with Spouse, with Family (Daughter, 2 grandsons) Occupation: Retired ED ROS GENERAL - Review of Systems Review Of Systems: See Below Constitutional: Reports: No Symptoms HEENT: Reports: No Symptoms Respiratory: Reports: Shortness of Breath. Denies: Cough Cardiovascular: Reports: Lightheadedness. Denies: Chest Pain Endocrine: Reports: No Symptoms GI/Abdominal: Reports: No Symptoms : Reports: No Symptoms ED EXAM, GI/ABD - Physical Exam Exam: See Below Exam Limited By: No Limitations General Appearance: Alert, No Apparent Distress Ears: Normal External Exam Nose: Normal Inspection Head: Atraumatic, Normocephalic Neck: Normal Inspection Respiratory/Chest: No Respiratory Distress, Lungs Clear, Normal Breath Sounds Cardiovascular: Regular Rate, Rhythm, No Edema, No Murmur GI/Abdominal Exam: Soft, Non-Tender, No Organomegaly, No Mass Back Exam: Normal Inspection Extremities: Normal Inspection EKG INTERPRETATION EKG Date: 12/07/19 Time: 11:14 Rhythm: Other (sinus tachycardia) Rate (Beats/Min): 137 [place]: Normal P-Wave: Present QRS: Normal ST-T: Normal QT: Normal EKG Interpretation Comments: Q waves in the inferior leads Course - Vital Signs Last Recorded V/S: Last Vital Signs Temp 98.6 F 12/07/19 17:00 Pulse 125 H 12/07/19 17:00 Resp 16 12/07/19 17:00 BP 108/81 12/07/19 17:00 Pulse Ox 97 12/07/19 16:15 - Orders/Labs/Meds Orders: Active Orders 24 hr Category Date Time Status Cardiac Monitoring [RC] . DIRECTED Care 12/07/19 11:10 Active EKG Documentation Completion [RC] STAT Care 12/07/19 11:11 Active Peripheral IV Care [RC] . DIRECTED Care 12/07/19 11:11 Active Sodium Chloride 0.9% [Saline Flush] Med 12/07/19 11:10 Active 10 ml FLUSH ASDIRECTED PRN Peripheral IV Insertion Adult [OM.PC] Stat Oth 12/07/19 11:10 Ordered Transfuse Red Blood Cells [COMM] Stat Oth 12/07/19 11:35 Ordered Medication Orders Sodium Chloride (Saline Flush) 10 ml FLUSH ASDIRECTED PRN PRN Reason: Keep Vein Open Last Admin: 12/07/19 14:27 Dose: 10 ml Labs: Laboratory Tests 12/07/19 12/07/19 12/07/19 Range/Units 11:15 11:15 11:15 WBC 3.56 L (4.23-9.07) K/mm3 RBC 2.07 L (4.63-6.08) M/mm3 Hgb 6.7 L* (13.7-17.5) gm/dl Hct 22.6 L (40.1-51.0) % MCV 109.2 H D (79.0-92.2) fl MCH 32.4 H (25.7-32.2) pg MCHC 29.6 L (32.2-35.5) g/dl RDW Std Deviation 62.2 H (35.1-43.9) fL Plt Count 144 L (163-337) K/mm3 MPV 10.4 (9.4-12.3) fl Neut % (Auto) 59.5 (34.0-67.9) % Lymph % (Auto) 12.6 L (21.8-53.1) % [place] % (Auto) 20.5 H (5.3-12.2) % Eos % (Auto) 6.2 (0.8-7.0) Baso % (Auto) 0.6 (0.1-1.2) % Neut # (Auto) 2.12 (1.78-5.38) K/mm3 Lymph # (Auto) 0.45 L (1.32-3.57) K/mm3 [place] # (Auto) 0.73 (0.30-0.82) K/mm3 Eos # (Auto) 0.22 (0.04-0.54) K/mm3 Baso # (Auto) 0.02 (0.01-0.08) K/mm3 Manual Slide Review Sodium 140 (136-145) mEq/L Potassium 3.3 L (3.5-5.1) mEq/L Chloride 99 (98-107) mEq/L Carbon Dioxide 32 (21-32) mEq/L Anion Gap 12.3 (5-15) BUN 21 H (7-18) mg/dL Creatinine 3.8 H D (0.7-1.3) mg/dL Est Cr Clr Drug Dosing 19.54 mL/min Estimated GFR (MDRD) 16 (>60) mL/min BUN/Creatinine Ratio 5.5 L (14-18) Glucose 111 (80-115) mg/dL Calcium 8.4 L (8.5-10.1) mg/dL Total Bilirubin 0.7 (0.2-1.0) mg/dL AST 8 L (15-37) U/L ALT 19 (16-63) U/L Alkaline Phosphatase 79 (46-116) U/L Troponin I 0.074 H* (0.00-0.056) ng/mL Total Protein 7.1 (6.4-8.2) g/dl Albumin 3.3 L (3.4-5.0) g/dl Globulin 3.8 gm/dL Albumin/Globulin Ratio 0.9 L (1-2) TSH 3rd Generation 1.815 (0.358-3.74) uIU/mL Blood Type O POSITIVE Gel Antibody Screen Negative Crossmatch See Detail 12/07/19 Range/Units 14:14 WBC (4.23-9.07) K/mm3 RBC (4.63-6.08) M/mm3 Hgb (13.7-17.5) gm/dl Hct (40.1-51.0) % MCV (79.0-92.2) fl MCH (25.7-32.2) pg MCHC (32.2-35.5) g/dl RDW Std Deviation (35.1-43.9) fL Plt Count (163-337) K/mm3 MPV (9.4-12.3) fl Neut % (Auto) (34.0-67.9) % Lymph % (Auto) (21.8-53.1) % [place] % (Auto) (5.3-12.2) % Eos % (Auto) (0.8-7.0) Baso % (Auto) (0.1-1.2) % Neut # (Auto) (1.78-5.38) K/mm3 Lymph # (Auto) (1.32-3.57) K/mm3 [place] # (Auto) (0.30-0.82) K/mm3 Eos # (Auto) (0.04-0.54) K/mm3 Baso # (Auto) (0.01-0.08) K/mm3 Manual Slide Review Sodium (136-145) mEq/L Potassium (3.5-5.1) mEq/L Chloride (98-107) mEq/L Carbon Dioxide (21-32) mEq/L Anion Gap (5-15) BUN (7-18) mg/dL Creatinine (0.7-1.3) mg/dL Est Cr Clr Drug Dosing mL/min Estimated GFR (MDRD) (>60) mL/min BUN/Creatinine Ratio (14-18) Glucose (80-115) mg/dL Calcium (8.5-10.1) mg/dL Total Bilirubin (0.2-1.0) mg/dL AST (15-37) U/L ALT (16-63) U/L Alkaline Phosphatase (46-116) U/L Troponin I 0.071 H* (0.00-0.056) ng/mL Total Protein (6.4-8.2) g/dl Albumin (3.4-5.0) g/dl Globulin gm/dL Albumin/Globulin Ratio (1-2) TSH 3rd Generation (0.358-3.74) uIU/mL Blood Type Gel Antibody Screen Crossmatch Meds: Medications Generic Name Dose Route Start Last Admin Trade Name Freq PRN Reason Stop Dose Admin Sodium Chloride 10 ml 12/07/19 11:10 12/07/19 14:27 Saline Flush FLUSH 10 ml ASDIRECTED PRN Administration Keep Vein Open Discontinued Medications Generic Name Dose Route Start Last Admin Trade Name Freq PRN Reason Stop Dose Admin Metoprolol Tartrate 25 mg 12/07/19 15:51 Lopressor PO 12/07/19 15:52 ONETIME ONE Metoprolol Tartrate 25 mg 12/07/19 16:04 Lopressor PO 12/07/19 16:05 ONETIME ONE - Re-Assessments/Exams Free Text/Narrative Re-Assessment/Exam: 12/07/19 11:57 I ordered an IV saline lock, EKG and labs. 12/07/19 11:58 His EKG shows a sinus tachycardia. His WBC is low at 3.56. His Hgb is low at 6.7. His platelets are low at 144. I have ordered 2 units for transfusion. 12/07/19 16:02 His K was a little low at 3.3. His BUN was elevated at 21. His creatinine was elevated at 3.8. His GFR was low at 16. His troponin was elevated at 0.074. I ordered a repeat troponin and that was better at 0.071. I feel this is from the chronic renal failure. His pulse remained at about 137 for most of the time he was here. I will try a dose of metoprolol 25mg PO. 12/07/19 17:10 His heart rate went back up to 137. I will have him take his metoprolol at home. Departure - Departure Time of Disposition: 17:15 Disposition: Home, Self-Care 01 Condition: Good Clinical Impression: Sinus tachycardia Anemia Qualifiers: Iron deficiency anemia type: chronic blood loss Qualified Code(s): D50.0 - Iron deficiency anemia secondary to blood loss (chronic) - Discharge Information *PRESCRIPTION DRUG MONITORING PROGRAM REVIEWED*: Not Applicable *COPY OF PRESCRIPTION DRUG MONITORING REPORT IN PATIENT [place]: Not Applicable Referrals: Jojo Bazan, [employer] [Primary Care Provider] - 3 Days Forms: ED Department Discharge Additional Instructions: Take your medication as prescribed. Please return if you are worse. Sepsis Event Note (ED) - Evaluation Sepsis Screening Result: No Definite Risk - Focused Exam Vital Signs: Vital Signs Temp Temp Pulse Resp BP Pulse Ox 12/07/19 17:00 98.6 F 125 H 16 108/81 12/07/19 16:15 97.4 F 97.4 F 118 H 16 94/64 97 12/07/19 15:40 98.1 F 125 H 20 101/66 97 12/07/19 15:25 98.6 F 137 H 20 95/68 12/07/19 15:20 98.6 F 99 20 95/68 100 12/07/19 14:30 98.2 F 137 H 16 106/74 12/07/19 14:00 98.3 F 137 H 20 101/66 12/07/19 13:30 98.0 F 99 16 98/67 12/07/19 13:15 98.3 F 137 H 19 102/66 99 12/07/19 13:00 98.2 F 137 H 18 108/66 12/07/19 12:45 98.0 F 137 H 18 96/64 100 12/07/19 10:51 97.1 F 137 H 20 124/73 99 - My Orders Last 24 Hours: My Active Orders 12/07/19 11:10 Cardiac Monitoring [RC] . DIRECTED Sodium Chloride 0.9% [Saline Flush] 10 ml FLUSH ASDIRECTED PRN Peripheral IV Insertion Adult [OM.PC] Stat 12/07/19 11:11 EKG Documentation Completion [RC] STAT Peripheral IV Care [RC] . DIRECTED 12/07/19 11:35 Transfuse Red Blood Cells [COMM] Stat - Assessment/Plan Last 24 Hours: My Active Orders 12/07/19 11:10 Cardiac Monitoring [RC] . DIRECTED Sodium Chloride 0.9% [Saline Flush] 10 ml FLUSH ASDIRECTED PRN Peripheral IV Insertion Adult [OM.PC] Stat 12/07/19 11:11 EKG Documentation Completion [RC] STAT Peripheral IV Care [RC] . DIRECTED 12/07/19 11:35 Transfuse Red Blood Cells [COMM] Stat
[2019-12-07] MEDS ORDERED: Metoprolol Tartrate 25 MG Tab PO ONE ×2 (15:51→16:04)
[2019-12-07 17:49] VITALS: BP 111/81; PULSE 137
== END 2019-12-07 17:45 | disposition home or self-care (01) ==
LOC: JD.ED 10:41
DX: D50.0 Iron deficiency anemia secondary to blood loss (chronic) (principal); R00.0 Tachycardia, unspecified; I11.0 Hypertensive heart disease with heart failure; I50.9 Heart failure, unspecified; E78.00 Pure hypercholesterolemia, unspecified; E11.9 Type 2 diabetes mellitus without complications; K21.9 Gastro-esophageal reflux disease without esophagitis; Z86.73 Personal history of transient ischemic attack (TIA), and cerebral infarction without residual deficits; Z87.891 Personal history of nicotine dependence
CPT/HCPCS: 36415; 36430; 80053; 84443; 84484; 85025; 86850; 86900; 86901; 86922; 93005; 99285; A9270; P9016; 93010; 99284

== ENCOUNTER 2020-07-16 10:45 | Emergency (ER) | payer MEDICARE, OTHER ==
[2020-07-16] MEDS ORDERED: Sodium Chloride 0.9% 10 ML Syringe FLUSH PRN (11:03)
--- NOTE | 2020-07-16 12:01 | EDM.PDOC ---
ED HPI GENERAL MEDICAL PROBLEM - General Chief Complaint: General Stated Complaint: PT STS BLOOD TRANSFUSION Time Seen by Provider: 07/16/20 10:57 Source of Information: Reports: Patient History Limitations: Reports: No Limitations - History of Present Illness INITIAL COMMENTS - FREE TEXT/NARRATIVE: The patient presents for a blood transfusion. He is in renal failure and on di alysis. He has chronic anemia and has been needed transfusions. His last Hgb yesterday was 6.3. Dr Atkins sent him in for a transfusion. The patient has some shortness of breath and weakness. He has no fever, chills or cough. He has no abdominal pain, nausea or vomiting. He has no chest pain. Onset: Gradual Duration: Day(s): Severity: Moderate Improves with: Reports: None Worsens with: Reports: None Associated Symptoms: Reports: Shortness of Breath. Denies: Chest Pain, Cough, Fever/Chills, Headaches, Nausea/Vomiting - Related Data Allergies Allergy/AdvReac Type Severity Reaction Status Date / Time No Known Allergies Allergy Verified 07/16/20 11:01 Home Meds: Home Meds Zolpidem Tartrate [Ambien] 10 mg PO BEDTIME PRN 07/31/15 [History] Rosuvastatin Calcium [Crestor] 5 mg PO DAILY 02/05/16 [History] Lactulose [Enulose] 30 gm PO DAILY PRN 12/17/18 [History] Cyanocobalamin (Vitamin B12) [Vitamin B12] 1,000 mcg PO DAILY 08/20/19 [History] Metoprolol Succinate 25 mg PO BID 08/20/19 [History] Sodium Bicarbonate 650 mg PO BID 08/20/19 [History] Pomalidomide [Pomalyst] 2 mg PO DAILY 12/07/19 [History] Calcium Carbonate 1,000 mg PO TID 07/16/20 [History] Gabapentin [Neurontin] 100 mg PO ASDIRECTED 07/16/20 [History] Sevelamer Carbonate [Renvela] 800 mg PO TID 07/16/20 [History] predniSONE [Prednisone] 7.5 mg PO DAILY 07/16/20 [History] Past Medical History HEENT History: Reports: Cataract, Impaired Vision Cardiovascular History: Reports: Heart Failure, High Cholesterol, Hypertension Other Cardiovascular History: enlarged heart, tachycardia Respiratory History: Reports: Other (See Below) Other Respiratory History: hx pneumonia Gastrointestinal History: Reports: Colon Polyp, GERD, GI Bleed Other Gastrointestinal History: hx c.diff Genitourinary History: Reports: BPH, Dialysis Other Genitourinary History: enlarged prostate Musculoskeletal History: Reports: Back Pain, Chronic, Osteoarthritis Other Musculoskeletal History: spinal stenosis Neurological History: Reports: CVA, Headaches, Chronic Endocrine/Metabolic History: Reports: Diabetes, Type II Hematologic History: Reports: Anemia, Blood Transfusion(s) Immunologic History: Reports: SLE Oncologic (Cancer) History: Reports: Other (See Below) Other Oncologic History: myloma - Infectious Disease History Infectious Disease History: Reports: C-Difficile, Chicken Pox, Shingles Other Infectious Disease History: hx c. diff and shingles - Past Surgical History HEENT Surgical History: Reports: Oral Surgery Other HEENT Surgeries/Procedures: Upper dentures. Cardiovascular Surgical History: Reports: Vascular Surgery GI Surgical History: Reports: Cholecystectomy Social & Family History - Family History Family Medical History: No Pertinent Family History Psychiatric: Reports: None Hematologic: Reports: None Immunologic: Reports: None Dermatologic: Reports: None Oncologic: Reports: None - Tobacco Use Tobacco Use Status *Q: Former Tobacco User Used Tobacco, but Quit: Yes Month/Year Tobacco Last Used: 2010 - Caffeine Use Caffeine Use: Reports: Coffee, Soda, Tea - Recreational Drug Use Recreational Drug Use: No - Living Situation & Occupation Living situation: Reports: , with Spouse, with Family (Daughter, 2 grandsons) Occupation: Retired ED ROS GENERAL - Review of Systems Review Of Systems: See Below Constitutional: Reports: Malaise, Weakness, Fatigue. Denies: Fever, Chills HEENT: Reports: No Symptoms Respiratory: Reports: Shortness of Breath. Denies: Cough Cardiovascular: Reports: No Symptoms Endocrine: Reports: No Symptoms GI/Abdominal: Reports: No Symptoms : Reports: No Symptoms Musculoskeletal: Reports: No Symptoms Skin: Reports: No Symptoms ED EXAM, GENERAL - Physical Exam Exam: See Below Exam Limited By: No Limitations General Appearance: Alert, No Apparent Distress Ears: Normal External Exam Nose: Normal Inspection Head: Atraumatic, Normocephalic Neck: Normal Inspection Respiratory/Chest: No Respiratory Distress, Lungs Clear, Normal Breath Sounds Cardiovascular: Regular Rate, Rhythm, No Edema, No Murmur GI/Abdominal: Soft, Non-Tender, No Organomegaly, No Mass Extremities: Normal Inspection Neurological: Alert, Oriented, No Motor/Sensory Deficits Course - Vital Signs Last Recorded V/S: Last Vital Signs Temp 97.9 F 07/16/20 16:33 Pulse 106 H 07/16/20 16:18 Resp 19 07/16/20 16:33 BP 112/67 07/16/20 16:33 Pulse Ox 98 07/16/20 16:33 - Orders/Labs/Meds Orders: Active Orders 24 hr Category Date Time Status Peripheral IV Care [RC] . DIRECTED Care 07/16/20 11:03 Active Sodium Chloride 0.9% [Normal Saline] 250 ml Med 07/16/20 13:45 Active IV ASDIRECTED Sodium Chloride 0.9% [Saline Flush] Med 07/16/20 11:03 Active 10 ml FLUSH ASDIRECTED PRN Peripheral IV Insertion Adult [OM.PC] Routine Oth 07/16/20 11:03 Ordered Transfuse PRBC [Transfuse Red Blood Cells] [COMM] Stat Oth 07/16/20 11:04 Ordered Medication Orders Sodium Chloride (Normal Saline) 250 mls @ 100 mls/hr IV ASDIRECTED AMANDA Last Admin: 07/16/20 13:44 Dose: 100 mls/hr Documented by: CAMELIA Sodium Chloride (Saline Flush) 10 ml FLUSH ASDIRECTED PRN PRN Reason: Keep Vein Open Last Admin: 07/16/20 13:43 Dose: 10 ml Documented by: CAMELIA Labs: Laboratory Tests 07/16/20 07/16/20 Range/Units 11:04 11:34 WBC 4.75 (4.23-9.07) K/mm3 RBC 1.92 L (4.63-6.08) M/mm3 Hgb 6.1 L* (13.7-17.5) gm/dl Hct 21.2 L (40.1-51.0) % MCV 110.4 H D (79.0-92.2) fl MCH 31.8 (25.7-32.2) pg MCHC 28.8 L (32.2-35.5) g/dl RDW Std Deviation 75.5 H (35.1-43.9) fL Plt Count 152 L (163-337) K/mm3 MPV 9.6 (9.4-12.3) fl Neut % (Auto) 71.4 H (34.0-67.9) % Lymph % (Auto) 8.0 L (21.8-53.1) % [place] % (Auto) 13.7 H (5.3-12.2) % Eos % (Auto) 4.4 (0.8-7.0) Baso % (Auto) 1.9 H (0.1-1.2) % Neut # (Auto) 3.39 (1.78-5.38) K/mm3 Lymph # (Auto) 0.38 L (1.32-3.57) K/mm3 [place] # (Auto) 0.65 (0.30-0.82) K/mm3 Eos # (Auto) 0.21 (0.04-0.54) K/mm3 Baso # (Auto) 0.09 H (0.01-0.08) K/mm3 Manual Slide Review Abnormal smear Blood Type O POSITIVE Gel Antibody Screen Negative Crossmatch See Detail Meds: Medications Generic Name Dose Route Start Last Admin Trade Name Freq PRN Reason Stop Dose Admin Sodium Chloride 250 mls @ 100 mls/hr 07/16/20 13:45 07/16/20 13:44 Normal Saline IV 100 mls/hr ASDIRECTED AMANDA Administration Sodium Chloride 10 ml 07/16/20 11:03 07/16/20 13:43 Saline Flush FLUSH 10 ml ASDIRECTED PRN Administration Keep Vein Open - Re-Assessments/Exams Free Text/Narrative Re-Assessment/Exam: 07/16/20 12:00 I ordered an IV saline lock, CBC, type and screen and 2 units of PRBCs. 07/16/20 18:07 His Hgb was 6.1. I have ordered 2 units of PRBCs. 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 Follow up with Jojo Bazan. Sepsis Event Note (ED) - Evaluation Sepsis Screening Result: Possible Sepsis Risk - Focused Exam Vital Signs: Vital Signs Temp Temp Pulse Resp BP Pulse Ox 07/16/20 16:33 97.9 F 19 112/67 98 07/16/20 16:18 97.8 F 106 H 19 109/85 100 07/16/20 16:01 97.8 F 20 118/87 97 07/16/20 15:00 97.8 F 20 115/73 100 07/16/20 14:03 97.6 F 22 H 107/84 100 07/16/20 13:48 97.9 F 21 H 104/87 100 07/16/20 10:57 98.1 F 137 H 22 H 113/71 99 - My Orders Last 24 Hours: My Active Orders 07/16/20 11:03 Peripheral IV Care [RC] . DIRECTED Sodium Chloride 0.9% [Saline Flush] 10 ml FLUSH ASDIRECTED PRN Peripheral IV Insertion Adult [OM.PC] Routine 07/16/20 11:04 Transfuse PRBC [Transfuse Red Blood Cells] [COMM] Stat 07/16/20 13:45 Sodium Chloride 0.9% [Normal Saline] 250 ml IV ASDIRECTED - Assessment/Plan Last 24 Hours: My Active Orders 07/16/20 11:03 Peripheral IV Care [RC] . DIRECTED Sodium Chloride 0.9% [Saline Flush] 10 ml FLUSH ASDIRECTED PRN Peripheral IV Insertion Adult [OM.PC] Routine 07/16/20 11:04 Transfuse PRBC [Transfuse Red Blood Cells] [COMM] Stat 07/16/20 13:45 Sodium Chloride 0.9% [Normal Saline] 250 ml IV ASDIRECTED
[2020-07-16] MEDS ORDERED: Sodium Chloride 0.9% 250 ML IV SCH (13:45)
[2020-07-16 18:24] VITALS: BP 110/80; PULSE 108
== END 2020-07-16 18:26 | disposition home or self-care (01) ==
LOC: JD.ED 10:45
DX: D50.0 Iron deficiency anemia secondary to blood loss (chronic) (principal); E78.00 Pure hypercholesterolemia, unspecified; I11.0 Hypertensive heart disease with heart failure; I50.9 Heart failure, unspecified; M32.9 Systemic lupus erythematosus, unspecified; E11.9 Type 2 diabetes mellitus without complications; Z79.899 Other long term (current) drug therapy; Z86.73 Personal history of transient ischemic attack (TIA), and cerebral infarction without residual deficits; Z99.2 Dependence on renal dialysis; Z87.891 Personal history of nicotine dependence
CPT/HCPCS: 36415; 36430; 85025; 86850; 86900; 86901; 86922; 99284; J7050; P9016

== ENCOUNTER 2021-05-02 12:46 | Emergency (ER) | payer MEDICARE, OTHER | END 2021-05-02 15:45 | disposition left against medical advice (07) | LOC: JD.ED 12:46 | DX: Z53.21 Procedure and treatment not carried out due to patient leaving prior to being seen by health care provider (principal) ==

== ENCOUNTER 2021-05-02 17:11 | Emergency (ER) | payer MEDICARE, OTHER ==
--- NOTE | 2021-05-02 20:17 | EDM.PDOC ---
ED HPI GENERAL MEDICAL PROBLEM - General Chief Complaint: General Stated Complaint: DIZZY/WEAK/LOW HEMOGLOBIN Time Seen by Provider: 05/02/21 19:55 Source of Information: Reports: Patient, Family () History Limitations: Reports: No Limitations - History of Present Illness INITIAL COMMENTS - FREE TEXT/NARRATIVE: Mr. Rowell is a very pleasant 70-year-old gentleman with a past medical history significant for end-stage renal disease on hemodialysis, and multiple myeloma on chemotherapy, who now presents the ED for a blood transfusion. He states that he had blood work done yesterday, but that he was not notified of the results until today. He showed me his results: His CBC is remarkable for an H/H depressed at 6.8/21.5, and thrombocytopenia of 185,000, with remainder of his CBC being unremarkable. His PT/INR are slightly elevated at 15.2/1.3. The patient also reports that he has been feeling generally weak since 04/29/2021, and dizzy today. The patient acknowledges that he has anemia requiring PRBC transfusions frequently, most recently in June, he believes. Here in the ED tonight, the patient is found to be hemodynamically stable, afebrile, saturating 100% on room air. He appears to be comfortable, in no acute distress. The patient states that he has chronic watery diarrhea, otherwise, the patient denies having a recent fever, chills, sore throat, ear pain, nasal or sinus congestion, cough, dyspnea, chest pain, palpitations, nausea, vomiting, constipation, diarrhea, abdominal pain, urinary symptoms, recent weight gain or weight loss, recent bloody bowel movements or black bowel movements, recent joint aches, headaches, or rashes. I reviewed the PMHx/PSHx/SocHx, which was reviewed with the patient by the RN. The patient's PCP is Jojo Bazan NP. His Biometrics Specialist is Dr. Luca Atkins. His Oncologist is Dr. Cheng Renteria. His Commercial Development Manager is Dr. Nolvia Lee. He has received 2 COVID vaccinations plus a booster, and an influenza va ccination this season. - Related Data Allergies Allergy/AdvReac Type Severity Reaction Status Date / Time No Known Allergies Allergy Verified 07/16/20 11:01 Home Meds: Home Meds Zolpidem Tartrate [Ambien] 10 mg PO BEDTIME PRN 07/31/15 [History] Rosuvastatin Calcium [Crestor] 5 mg PO DAILY 02/05/16 [History] Lactulose [Enulose] 30 gm PO DAILY PRN 12/17/18 [History] Cyanocobalamin (Vitamin B12) [Vitamin B12] 1,000 mcg PO DAILY 08/20/19 [History] Metoprolol Succinate 25 mg PO BID 08/20/19 [History] Sodium Bicarbonate 650 mg PO BID 08/20/19 [History] Pomalidomide [Pomalyst] 2 mg PO DAILY 12/07/19 [History] Calcium Carbonate 1,000 mg PO TID 07/16/20 [History] Sevelamer Carbonate [Renvela] 800 mg PO TID 07/16/20 [History] predniSONE [Prednisone] 7.5 mg PO DAILY 07/16/20 [History] Past Medical History HEENT History: Reports: Cataract, Impaired Vision Cardiovascular History: Reports: Heart Failure, High Cholesterol, Hypertension Respiratory History: Reports: Other (See Below) Other Respiratory History: hx pneumonia Gastrointestinal History: Reports: Colon Polyp, GERD, GI Bleed Other Gastrointestinal History: hx c.diff Genitourinary History: Reports: BPH, Dialysis (Q Mo, , Th) Musculoskeletal History: Reports: Back Pain, Chronic, Osteoarthritis Other Musculoskeletal History: spinal stenosis Neurological History: Reports: CVA, Headaches, Chronic Endocrine/Metabolic History: Reports: Diabetes, Type II Hematologic History: Reports: Anemia, Blood Transfusion(s) Immunologic History: Reports: SLE Oncologic (Cancer) History: Reports: Other (See Below) (Multiple myeloma dx'd October 2011, on CTx) - Infectious Disease History Infectious Disease History: Reports: C-Difficile, Chicken Pox, Shingles Other Infectious Disease History: hx c. diff and shingles - Past Surgical History HEENT Surgical History: Reports: Oral Surgery Other HEENT Surgeries/Procedures: Upper dentures. Cardiovascular Surgical History: Reports: Vascular Surgery GI Surgical History: Reports: Cholecystectomy Social & Family History - Family History Family Medical History: No Pertinent Family History Psychiatric: Reports: None Hematologic: Reports: None Immunologic: Reports: None Dermatologic: Reports: None Oncologic: Reports: None - Tobacco Use Tobacco Use Status *Q: Former Tobacco User Used Tobacco, but Quit: Yes Month/Year Tobacco Last Used: 2011 - Caffeine Use Caffeine Use: Reports: Coffee - Recreational Drug Use Recreational Drug Use: No - Living Situation & Occupation Living situation: Reports: , with Spouse, with Family (Daughter, 2 grandsons) Occupation: Retired ED ROS GENERAL - Review of Systems Review Of Systems: Comprehensive ROS is negative, except as noted in HPI. ED EXAM, GENERAL - Physical Exam Exam: See Below Exam Limited By: No Limitations General Appearance: Alert, WD/WN, No Apparent Distress Eye Exam: Bilateral Eye: EOMI, Normal Inspection Ears: Normal External Exam, Hearing Grossly Normal Nose: Normal Inspection Throat/Mouth: Normal Inspection, Normal Lips, Normal Voice, No Airway Compromise Head: Atraumatic, Normocephalic Neck: Normal Inspection, Full Range of Motion Respiratory/Chest: No Respiratory Distress, Lungs Clear, Normal Breath Sounds, No Accessory Muscle Use Cardiovascular: Normal Peripheral Pulses, No Gallop, No JVD, No Murmur, No Rub, Irregularly Irregular Peripheral Pulses: 3+: Radial (L), Radial (R) GI/Abdominal: Normal Bowel Sounds, Soft, Non-Tender, No Organomegaly, No Distention, No Abnormal Bruit, No Mass Extremities: Normal Range of Motion, No Pedal Edema, Normal Capillary Refill, Other (Good thrill LUE AVF) Neurological: Alert, Oriented, Normal Cognition, No Motor/Sensory Deficits Psychiatric: Normal Affect Skin Exam: Warm, Dry, Intact, Normal Color, No Rash Course - Vital Signs Last Recorded V/S: Last Vital Signs Temp 36.5 C 05/03/21 08:20 Pulse 103 H 05/03/21 08:20 Resp 28 H 05/03/21 08:20 BP 103/76 05/03/21 08:20 Pulse Ox 91 L 05/03/21 08:20 - Orders/Labs/Meds Orders: Active Orders 24 hr Category Date Time Status Transfuse Fresh Frozen Plasma [COMM] Stat Oth 05/02/21 20:11 Ordered Transfuse PRBC [Transfuse Red Blood Cells] [COMM] Stat Oth 05/02/21 20:11 Ordered Transfuse Red Blood Cells [COMM] Stat Oth 05/02/21 20:11 Ordered Labs: Laboratory Tests 05/02/21 05/03/21 Range/Units 20:25 08:27 Hgb 9.2 L D (13.7-17.5) gm/dl Hct 30.1 L (40.1-51.0) % Blood Type O POSITIVE Gel Antibody Screen Negative Crossmatch See Detail Meds: Medications Discontinued Medications Generic Name Dose Route Start Last Admin Trade Name Jayda PRN Reason Stop Dose Admin Sodium Chloride 250 mls @ 75 mls/hr 05/02/21 21:45 Normal Saline IV ASDIRECTED AMANDA Loperamide HCl 4 mg 05/03/21 01:12 05/03/21 01:23 Loperamide 2 Mg Cap PO 05/03/21 01:13 4 mg ONETIME STA Administration - Re-Assessments/Exams Free Text/Narrative Re-Assessment/Exam: 05/02/21 20:14 I have ordered transfusion of 2 units of PRBCs and 2 units of FFP. 05/03/21 07:18 The patient has perhaps 50 to 100 mL of PRBCs remaining to transfuse. He received the 1st unit of PRBCs and 2 units of FFP without incident. Once the 2nd unit of PRBCs has finished infusing, I will discharge him home. 05/03/21 19:21 Notified that after I prepared the patient for discharge, Kahlil Irby called and asked if we would check a post-transfusion H/H. It is 9.2/30.1. Departure - Departure Time of Disposition: 07:45 Disposition: Home, Self-Care 01 Condition: Good (Anemia) Clinical Impression: End-stage renal disease on hemodialysis Anemia Qualifiers: Iron deficiency anemia type: chronic blood loss Qualified Code(s): D50.0 - Iron deficiency anemia secondary to blood loss (chronic) - Discharge Information *PRESCRIPTION DRUG MONITORING PROGRAM REVIEWED*: Not Applicable *COPY OF PRESCRIPTION DRUG MONITORING REPORT IN PATIENT OTTONIEL: Not Applicable Instructions: Anemia, Dialysis Referrals: Jojo Bazan NP [Primary Care Provider] - Luca Atkins MD [Ordering Only Provider] - Cheng Robles MD [Ordering Only Provider] - Nolvia Lee MD [Ordering Only Provider] - Forms: ED Department Discharge Additional Instructions: You were seen in the emergency room after blood work that was performed on Saturday found your hemoglobin and hematocrit to be very low. You were transfused 2 units of packed red blood cells and 2 units of fresh frozen plasma in the ER. Please follow-up with your Biometrics Specialist, Dr. Luca Raducu, at the next available appointment. If any other problems, please do not hesitate to return to the ER. Sepsis Event Note (ED) - Focused Exam Vital Signs: Vital Signs Temp Pulse Resp BP Pulse Ox 05/03/21 08:20 36.5 C 103 H 28 H 103/76 91 L - My Orders Last 24 Hours: My Active Orders 05/02/21 20:11 Transfuse Fresh Frozen Plasma [COMM] Stat Transfuse PRBC [Transfuse Red Blood Cells] [COMM] Stat Transfuse Red Blood Cells [COMM] Stat - Assessment/Plan Last 24 Hours: My Active Orders 05/02/21 20:11 Transfuse Fresh Frozen Plasma [COMM] Stat Transfuse PRBC [Transfuse Red Blood Cells] [COMM] Stat Transfuse Red Blood Cells [COMM] Stat
[2021-05-02] MEDS ORDERED: Sodium Chloride 0.9% 250 ML IV SCH (21:45)
[2021-05-03] MEDS ORDERED: Loperamide 2 MG Cap PO STA (01:12)
[2021-05-03 10:49] VITALS: BP 103/76; PULSE 103
== END 2021-05-03 08:25 | disposition home or self-care (01) ==
LOC: JD.ED 17:11
DX: E11.22 Type 2 diabetes mellitus with diabetic chronic kidney disease (principal); I13.2 Hypertensive heart and chronic kidney disease with heart failure and with stage 5 chronic kidney disease, or end stage renal disease; N18.6 End stage renal disease; I50.9 Heart failure, unspecified; D63.1 Anemia in chronic kidney disease; Z99.2 Dependence on renal dialysis; E78.00 Pure hypercholesterolemia, unspecified; Z79.899 Other long term (current) drug therapy
CPT/HCPCS: 36415; 36430; 85014; 85018; 86850; 86900; 86901; 86922; 99284; A9270; P9016; P9017

== ENCOUNTER 2021-11-06 04:06 | Emergency (ER) | payer MEDICARE, OTHER ==
[2021-11-06 04:21] VITALS: BP 114/72; PULSE 97
== END 2021-11-06 07:45 | disposition home or self-care (01) ==
LOC: JD.ED 04:06
DX: S42.131A Displaced fracture of coracoid process, right shoulder, initial encounter for closed fracture (principal); S70.02XA Contusion of left hip, initial encounter; I11.0 Hypertensive heart disease with heart failure; I50.9 Heart failure, unspecified; E78.00 Pure hypercholesterolemia, unspecified; E11.9 Type 2 diabetes mellitus without complications; Z86.73 Personal history of transient ischemic attack (TIA), and cerebral infarction without residual deficits; Z90.49 Acquired absence of other specified parts of digestive tract; Z87.891 Personal history of nicotine dependence; Z79.899 Other long term (current) drug therapy; W18.39XA Other fall on same level, initial encounter
CPT/HCPCS: 36415; 70450; 70450-26; 73030-26-RT; 73030-RT; 73502-26-LT; 73502-LT; 80053; 85025; 93005; 93010; 99284; 99284-25

== ENCOUNTER 2021-12-10 01:34 | Emergency (ER) | payer MEDICARE, OTHER ==
[2021-12-10] MEDS ORDERED: Sodium Chloride 0.9% 10 ML Syringe FLUSH PRN (01:40)
[2021-12-10 01:44] VITALS: BP 134/112; PULSE 109
[2021-12-10] MEDS ORDERED: Albuterol/Ipratropium 3.0-0.5 MG/3 ML Neb Soln NEB ONE (01:56)
[2021-12-10] MEDS ORDERED: methylPREDNISolone Sodium Succinate 125 MG/2 ML SDV IVPUSH ONE (02:10)
[2021-12-10] MEDS ORDERED: Sodium Chloride 0.9% 1,000 ML IV SCH (02:15)
[2021-12-10] MEDS ORDERED: Ondansetron 4 MG/2 ML SDV IVPUSH ONE (02:16)
[2021-12-10 02:26] LABS: ESTIMATED GFR 10 mL/min (>60)
[2021-12-10] MEDS ORDERED: 50% Dextrose in Water 50 ML Syringe IVPUSH ONE ×2 (02:29→03:56)
[2021-12-10] MEDS ORDERED: Metoclopramide 10 MG/2 ML SDV IVPUSH ONE (03:44)
[2021-12-10] MEDS ORDERED: Dextrose 5%-Lactated Ringers 1,000 ML IV SCH (04:00)
[2021-12-10] MEDS ORDERED: Piperacillin/Tazobactam 3.375 GM in Sodium Chloride 0.9% 100 ML IV ONE (04:12)
[2021-12-10] MEDS ORDERED: Loperamide 2 MG Cap PO ONE (05:03)
[2021-12-10] MEDS ORDERED: Acetaminophen 325 MG Tab PO ONE (07:42)
== END 2021-12-10 08:40 ==
LOC: JD.ED 01:34
DX: A41.9 Sepsis, unspecified organism (principal); C90.00 Multiple myeloma not having achieved remission; I95.9 Hypotension, unspecified; E11.649 Type 2 diabetes mellitus with hypoglycemia without coma; D63.8 Anemia in other chronic diseases classified elsewhere; R09.02 Hypoxemia; E86.0 Dehydration; I48.91 Unspecified atrial fibrillation; I11.0 Hypertensive heart disease with heart failure; I50.9 Heart failure, unspecified; R06.82 Tachypnea, not elsewhere classified; E78.00 Pure hypercholesterolemia, unspecified; K21.9 Gastro-esophageal reflux disease without esophagitis; Z79.899 Other long term (current) drug therapy; Z86.73 Personal history of transient ischemic attack (TIA), and cerebral infarction without residual deficits; Z20.822 Contact with and (suspected) exposure to COVID-19
CPT/HCPCS: 36415; 36600; 71045; 80053; 81001; 82803; 82947; 83605; 83880; 84484; 85025; 86140; 87040; 93005; 94640; 94762; 96361; 96365; 96375; 96376; 99285; A9270; J2405; J2543; J2765; J2930; J3490; J7030; J7121; U0002; 93010; J7620-GY

== ENCOUNTER 2022-02-05 08:23 | Emergency (ER) | payer MEDICARE, OTHER ==
[2022-02-05] MEDS ORDERED: Acetaminophen 325 MG Tab PO ONE (08:49)
[2022-02-05] MEDS ORDERED: Lidocaine 2% 11 ML Jelly Filled Syringe MUCMEM ONE (08:54)
[2022-02-05] MEDS ORDERED: Sodium Chloride 0.9% 1,000 ML IV SCH ×2 (09:00→10:45)
[2022-02-05] MEDS ORDERED: Norepinephrine 4 MG in Dextrose 5% in Water 246 ML IV SCH ×2 (09:15)
[2022-02-05] MEDS ORDERED: Vancomycin 1.75 GM in Sodium Chloride 0.9% 500 ML IV ONE (09:22)
[2022-02-05] MEDS ORDERED: Piperacillin/Tazobactam 4.5 GM in Sodium Chloride 0.9% 100 ML IV ONE (09:24)
[2022-02-05 09:58] LABS: ESTIMATED GFR 11 mL/min (>60)
[2022-02-05] MEDS ORDERED: 50% Dextrose in Water 50 ML Syringe IVPUSH ONE ×2 (10:10→17:00)
[2022-02-05] MEDS ORDERED: 50% Dextrose in Water 50 ML Syringe ONE ×2 (10:11→16:54)
[2022-02-05 10:33] LABS: CORONAVIRUS COVID-19 NAA NEGATIVE (NEGATIVE)
[2022-02-05] MEDS ORDERED: HYDROmorphone 0.5 MG/0.5 ML Syringe IVPUSH ONE (10:57)
[2022-02-05] MEDS ORDERED: Metoclopramide 10 MG/2 ML SDV IVPUSH ONE (10:57)
[2022-02-05] MEDS ORDERED: LORazepam 2 MG/ML SDV IVPUSH ONE (11:42)
[2022-02-05] MEDS ORDERED: 50% Dextrose in Water 50 ML SDV IV ONE (12:01)
[2022-02-05] MEDS ORDERED: LORazepam 2 MG/ML SDV IV ONE (15:56)
[2022-02-05] MEDS ORDERED: Dextrose 5%-0.9% NaCl 1,000 ML ONE (16:55)
[2022-02-05] MEDS ORDERED: Dextrose 5%-0.9% NaCl 1,000 ML IV SCH (17:30)
[2022-02-05 17:33] VITALS: BP 120/64; PULSE 107
== END 2022-02-05 17:05 ==
LOC: JD.ED 08:23
DX: J18.9 Pneumonia, unspecified organism (principal); R09.02 Hypoxemia; I10 Essential (primary) hypertension; I13.0 Hypertensive heart and chronic kidney disease with heart failure and stage 1 through stage 4 chronic kidney disease, or unspecified chronic kidney disease; E11.22 Type 2 diabetes mellitus with diabetic chronic kidney disease; N18.9 Chronic kidney disease, unspecified; I50.9 Heart failure, unspecified; D63.1 Anemia in chronic kidney disease; I48.91 Unspecified atrial fibrillation; Z99.2 Dependence on renal dialysis; E78.00 Pure hypercholesterolemia, unspecified; Z20.822 Contact with and (suspected) exposure to COVID-19; Z79.899 Other long term (current) drug therapy
CPT/HCPCS: 0240U; 36415; 36600; 70450; 70450-26; 71045; 71045-26; 80053; 81001; 82803; 82947; 83605; 83735; 83880; 85007; 85027; 85610; 85652; 85730; 86140; 87040; 93005; 93010; 96361; 96365; 96367; 96375; 96376; 99284; 99285-25; A9270-GY; J1170; J1642; J2060; J2543; J2765; J3370; J7030; J7050